=== PATIENT | female | born 1970 | race American Indian/Alaskan Native ===

== ENCOUNTER 2016-08-23 18:59 | Emergency (ER) | payer BC, OTHER ==
[2016-08-23 21:27] VITALS: BP 140/63
[2016-08-23] MEDS ORDERED: Ciprofloxacin 500 MG Tab PO ONE (23:47)
[2016-08-23] MEDS ORDERED: Phenazopyridine 95 MG Tab PO ONE (23:47)
--- NOTE | 2016-08-23 23:54 | EDM.PDOC ---
ED HPI RENAL/ - General Chief Complaint: Genitourinary Problem Stated Complaint: BLADER INFECTION [id number] Time Seen by Provider: 08/23/16 23:40 Source of Information: Reports: Patient History Limitations: Reports: No limitations - History of Present Illness INITIAL COMMENTS - FREE TEXT/NARRATIVE: This 46 yo female patient reports to the ED with a 2 day history of urinary tract infection symptoms (painful urination, urinary cramping). The patient reports her symptoms started yesterday, but she did not get into the clinic today. Symptom Onset Date: 08/22/16 Timing/Duration: Reports: Day(s): (2), Constant, Getting worse Location: Reports: urethral, suprapubic Quality: Reports: ache, cramping Severity: moderate Worsens with: Reports: defecating Associated Symptoms: Reports: burning, dysuria - Related Data Allergies/ADRs: Allergies Allergy/AdvReac Type Severity Reaction Status Date / Time No Known Allergies Allergy Verified 03/25/13 11:50 Home Meds: Home Meds Ibuprofen 600 mg PO Q8H 03/25/13 [History] metFORMIN [metFORMIN XR] 500 mg PO WDIN 03/25/13 [History] Past Medical History - Past Health History Medical/Surgical History: Denies Medical/Surgical History Social & Family History - Tobacco Use Smoking Status *Q: Never Smoker Years of Tobacco use: 20 Second Hand Smoke Exposure: Yes - Caffeine Use Caffeine Use: Reports: Coffee, Energy drinks - Alcohol Use Days Per Week of Alcohol Use: 1 Number of Drinks Per Day: 2 Total Drinks Per Week: 2 - Recreational Drug Use Recreational Drug Use: No ED ROS GENERAL - Review of Systems Review Of Systems: ROS reveals no pertinent complaints other than HPI. ED EXAM, RENAL/ - Physical Exam Exam: See Below Exam Limited By: No limitations General Appearance: alert, WD/WN, mild distress Eye Exam: bilateral eye: EOMI, normal inspection, PERRL Ears: normal external exam, normal canal, hearing grossly normal, normal TMs Nose: normal inspection, normal mucosa, no blood Throat/Mouth: Normal inspection, Normal lips, Normal teeth, Normal gums, Normal oropharynx, Normal voice, No airway compromise Head: atraumatic, normocephalic Neck: normal inspection, supple, non-tender, full range of motion Respiratory/Chest: no respiratory distress, lungs clear, normal breath sounds, no accessory muscle use, chest non-tender Cardiovascular: normal peripheral pulses, regular rate, rhythm, no edema, no gallop, no JVD, no murmur, no rub GI/Abdominal: normal bowel sounds, soft, non tender, no organomegaly, no distention, no abnormal bruit, no mass, other (obese) (Female) Exam: Deferred Rectal (Female) Exam: Deferred Back Exam: normal inspection, full range of motion, NT Extremities: normal inspection, normal range of motion, non-tender, normal capillary refill, no pedal edema Neurological: alert, oriented, CN II-XII intact, normal cognition, normal gait, normal reflexes, no motor/sensory deficits Psychiatric: normal affect, normal mood Skin Exam: Warm, Dry, Intact, Normal color, No rash Lymphatic: no adenopathy Course - Vital Signs Last Recorded V/S: Last Vital Signs Temp 36.6 C 08/23/16 21:24 Pulse 91 08/23/16 21:24 Resp 20 08/23/16 21:24 BP 140/63 08/23/16 21:24 Pulse Ox 96 08/23/16 21:24 - Orders/Labs/Meds Labs: Laboratory Tests 08/23/16 Range/Units 21:30 Urine Color Yellow (YELLOW) Urine Appearance Slightly cloudy (CLEAR) Urine pH 5.5 (5.0-9.0) Ur Specific [place] 1.015 (1.005-1.030) Urine Protein Trace H (NEGATIVE) Urine Glucose (UA) 500 H (NEGATIVE) Urine Ketones Negative (NEGATIVE) Urine Occult Blood Trace-intact H (NEGATIVE) Urine Nitrite Negative (NEGATIVE) Urine Bilirubin Negative (NEGATIVE) Urine Urobilinogen 0.2 (0.2-1.0) mg/dL Ur Leukocyte Esterase Small H (NEGATIVE) Urine RBC 5-10 H /HPF Urine WBC 40-50 H (0-5/HPF) /HPF Ur Epithelial Cells Many H /HPF Urine Bacteria Many H (0-FEW/HPF) /HPF Urine Yeast Moderate H (0/HPF) /HPF Meds: Medications Discontinued Medications Generic Name Dose Route Start Last Admin Trade Name Freq PRN Reason Stop Dose Admin Ciprofloxacin 500 mg 08/23/16 23:47 Ciprofloxacin Hcl PO 08/23/16 23:48 ONETIME ONE Phenazopyridine HCl 190 mg 08/23/16 23:47 Urinary Pain Relief PO 08/23/16 23:48 ONETIME ONE Departure - Departure Time of Disposition: 23:52 Disposition: Home, Self-Care 01 Condition: fair Clinical Impression: UTI, Urinary tract infectious disease Instructions: Urinary Tract Infection, Adult, [id number] Forms: ED Department Discharge Care Plan Goals: The patient was advised of the examination and lab results during the visit. The patient was given an oral dose of Cipro (500 mg) and Pyridium (200 mg) while in the ED. The patient was discharged with a script for Cipro (500 mg) #6 to take 1 by mouth 2 times per day for 3 days and Pyridium (200 mg) #6 to take 1 by mouth 3 times per day for 2 days. If the patient has any additional symptoms or concerns, the patient should follow-up with her primary care facility or return to the emergency department.
== END 2016-08-24 00:09 | disposition home or self-care (01) ==
LOC: DL.ED 18:59
DX: N39.0 Urinary tract infection, site not specified (principal); Z79.84 Long term (current) use of oral hypoglycemic drugs
CPT/HCPCS: 81001; 99283; A9270

== ENCOUNTER 2017-06-06 05:31 | Day surgery (SDC) | payer OTHER ==
[~2017-06-06 05:31] MED LIST: Dextrose 5%-0.45% NaCl 1,000 ML IV SCH; Sodium Chloride 0.9% 10 ML Syringe FLUSH PRN
[2017-06-06] MEDS ORDERED: fentaNYL 100 MCG/2 ML SDV IV ONE ×3 (05:32→06:33)
[2017-06-06] MEDS ORDERED: Midazolam 1 MG/ML 2 ML SDV IV ONE ×3 (05:32→06:34)
[2017-06-06] MEDS ORDERED: Dextrose 5%-0.45% NaCl 1,000 ML IV SCH (06:00)
[2017-06-06] MEDS ORDERED: Sodium Chloride 0.9% 10 ML Syringe FLUSH PRN (06:00)
[2017-06-06] MEDS ORDERED: Midazolam 1 MG/ML 2 ML SDV ONE (06:12)
[2017-06-06] MEDS ORDERED: fentaNYL 100 MCG/2 ML SDV ONE (06:12)
[2017-06-06 09:20] VITALS: BP 125/69
--- NOTE | 2017-06-06 13:10 | OR ---
DATE: 06/06/2017 PROCEDURE: Esophagogastroduodenoscopy and multiple pinch biopsies. INSTRUMENT USED: GIF-H180 Olympus video panendoscope. PREMEDICATIONS: No oral topical anesthesia used. Fentanyl 100 mcg intravenous, Versed 2 mg intravenous. Nasal O2 cannula. The procedure was done under pulse oximetry, BP recording, and scheme technician. INDICATION: The patient with persistent abdominal pain and dyspepsia, unexplained and not responsive to medical measures, on high-dose PPI. Esophagogastroduodenoscopy is performed for detection of any active erosive lesions, Stevens esophagus and/or malignancy also under consideration, H. pylori status to be determined, endoscopic hemostasis therapy if needed. DESCRIPTION OF PROCEDURE: The scope was passed with ease. Adequate visualization of the esophagus was made from proximal to distal areas. No upper esophageal lesions identified. No distal esophageal stricture. No uphill or downhill esophageal varices. No Kaylen-Sotomayor tear. No evidence of erosive esophagitis by Braham criteria. No esophageal polyp or tumor mass identified. Z-line was seen at around 40 cm distal to the oral verge, configuration consistent with grade I by ZAP classification. No proximal gastric varices noted. Gastric fundus examination by retroflexion showed no polypoid lesions. No gastric ulcer, malignant mass, or vascular ectasia identified. There was some patchy erythema of the antrum was noted. Duodenal bulb showed no ulcer. Visualized second part of the duodenum was unremarkable. Multiple pinch biopsies were taken from the gastric antrum and proximal body and sent for PyloriTek test for H. pylori, and if negative in an hour, tissue is to be sent for histopathology. No bleeding was noted from any of the visualized areas at the completion of the examination. Photographs were taken of the duodenal bulb, gastric antrum, fundus, and distal esophagus. IMPRESSION: Normal study. The patient tolerated the procedure well. [facility] /[id number]
== END 2017-06-06 08:45 | disposition home or self-care (01) ==
LOC: DL.ENDO 05:31
PROVIDERS: ATTEND Internal Medicine Gastroenterology
DX: K29.50 Unspecified chronic gastritis without bleeding (principal); E66.9 Obesity, unspecified; E11.9 Type 2 diabetes mellitus without complications; E78.00 Pure hypercholesterolemia, unspecified
CPT/HCPCS: 43239; 87077; J2250; J3010; J7042

== ENCOUNTER 2018-09-05 12:16 | Emergency (ER) | payer BC, OTHER ==
[2018-09-05 12:49] VITALS: BP 148/95
--- NOTE | 2018-09-05 17:45 | EDM.PDOC ---
Scribed by Lianne Blanchard 09/05/18 1416 for Kanchan Weir NP ED HPI GENERAL MEDICAL PROBLEM - General Chief Complaint: Skin Complaint Stated Complaint: rash on upper thigh Time Seen by Provider: 09/05/18 13:56 Source of Information: Reports: Patient, RN, RN Notes Reviewed History Limitations: Reports: No Limitations - History of Present Illness INITIAL COMMENTS - FREE TEXT/NARRATIVE: Patient presents to the ER with complaint of rash on skin on right leg that has spread. Patient states severe pain to the areas. She states it began yesterday a.m. Denies fever or chills. She states she can feel an area on her right cheek that feels will develop soon. Onset Date: 09/04/18 Duration: Constant Location: Reports: Lower Extremity, Right Quality: Reports: Ache Severity: Mild Improves with: Reports: None Worsens with: Reports: None Associated Symptoms: Reports: No Other Symptoms Right Upper Leg Pain Score (Numeric/FACES): 8 - Related Data Allergies Allergy/AdvReac Type Severity Reaction Status Date / Time No Known Allergies Allergy Verified 09/05/18 12:55 Home Meds: Home Meds Ibuprofen 600 mg PO Q8H 03/25/13 [History] metFORMIN [metFORMIN XR] 1,000 mg PO BID 03/25/13 [History] Multivitamin with Minerals [Multivitamins with Minerals] 1 each PO WEEKLY [History] Omeprazole [priLOSEC OTC] 20 mg PO BID 05/26/17 [History] Rosuvastatin [Crestor] 10 mg PO BEDTIME 05/26/17 [History] glipiZIDE [Glucotrol] 10 mg PO DAILY 05/26/17 [History] Past Medical History - Past Health History Medical/Surgical History: Denies Medical/Surgical History HEENT History: Reports: Impaired Vision Cardiovascular History: Reports: High Cholesterol Respiratory History: Reports: None Gastrointestinal History: Reports: GERD, PUD, Other (See Below) Other Gastrointestinal History: FATTY LIVER Genitourinary History: Reports: None [employer] History: Reports: None Musculoskeletal History: Reports: Fracture Other Musculoskeletal History: RIGHT ANKLE Neurological History: Reports: None Psychiatric History: Reports: Anxiety Endocrine/Metabolic History: Reports: Diabetes, Type II, Obesity/BMI 30+ Hematologic History: Reports: Anemia Immunologic History: Reports: None Oncologic (Cancer) History: Reports: None Dermatologic History: Reports: None - Infectious Disease History Infectious Disease History: Reports: Chicken Pox - Past Surgical History Head Surgeries/Procedures: Reports: None Musculoskeletal Surgical History: Reports: ORIF, Other (See Below) Other Musculoskeletal Surgeries/Procedures:: RIGHT ANKLE ORIF Social & Family History - Family History Family Medical History: Noncontributory - Tobacco Use Smoking Status *Q: Never Smoker Second Hand Smoke Exposure: No - Caffeine Use Caffeine Use: Reports: Coffee - Recreational Drug Use Recreational Drug Use: No ED ROS GENERAL - Review of Systems Review Of Systems: ROS reveals no pertinent complaints other than HPI. ED EXAM, SKIN/RASH Exam: See Below Exam Limited By: No Limitations General Appearance: Alert, WD/WN, No Apparent Distress Eye Exam: Bilateral Eye: EOMI, Normal Inspection, PERRL Ears: Normal External Exam, Normal Canal, Hearing Grossly Normal, Normal TMs Nose: Normal Inspection, Normal Mucosa, No Blood Throat/Mouth: Normal Inspection, Normal Lips, Normal Teeth, Normal Gums, Normal Oropharynx, Normal Voice, No Airway Compromise Head: Atraumatic, Normocephalic Neck: Normal Inspection, Supple, Non-Tender, Full Range of Motion Respiratory/Chest: No Respiratory Distress, Lungs Clear, Normal Breath Sounds, No Accessory Muscle Use, Chest Non-Tender Cardiovascular: Normal Peripheral Pulses, Regular Rate, Rhythm, No Edema, No Gallop, No JVD, No Murmur, No Rub GI/Abdominal: Normal Bowel Sounds, Soft, Non-Tender, No Organomegaly, No Distention, No Abnormal Bruit, No Mass (Female) Exam: Deferred Rectal (Female) Exam: Deferred Back Exam: Normal Inspection, Full Range of Motion, NT Extremities: Normal Inspection, Normal Range of Motion, Non-Tender, No Pedal Edema, Normal Capillary Refill Neurological: Alert, Oriented, CN II-XII Intact, Normal Cognition, Normal Gait, Normal Reflexes, No Motor/Sensory Deficits Psychiatric: Tearful Skin: Other (several areas on the right thigh and calf of erythematous areas with vesicles in the center--various stages noted. ) Lymphatic: No Adenopathy Course - Vital Signs Last Recorded V/S: Last Vital Signs Temp 98.4 F 09/05/18 12:48 Pulse 72 09/05/18 12:48 Resp 16 09/05/18 12:48 BP 148/95 H 09/05/18 12:48 Pulse Ox 96 09/05/18 12:48 Departure - Departure Time of Disposition: 14:15 Disposition: Home, Self-Care 01 Condition: Fair (shingles) Clinical Impression: Shingles Qualifiers: Herpes zoster complications: without complications Qualified Code(s): B02.9 - Zoster without complications - Discharge Information *PRESCRIPTION DRUG MONITORING PROGRAM REVIEWED*: No *COPY OF PRESCRIPTION DRUG MONITORING REPORT IN PATIENT ROGELIO: No Instructions: Shingles, [id number] Referrals: Luis Antonio Rahman [employer] [Primary Care Provider] - Forms: ED Department Discharge Additional Instructions: RX: Famciclovir, Lidocaine ointment, Oxycodone Drink plenty of water Follow up with your primary care facility next week if no improvement May use Tylenol as directed for pain I have read and agree with the documentation that has been completed regarding this visit. By signing this record, I attest that the documentation was completed in my physical presence and is an accurate record of the encounter.
== END 2018-09-05 14:21 | disposition home or self-care (01) ==
LOC: DL.ED 12:16
DX: B02.9 Zoster without complications (principal); E78.00 Pure hypercholesterolemia, unspecified; E11.9 Type 2 diabetes mellitus without complications; Z79.84 Long term (current) use of oral hypoglycemic drugs; Z79.899 Other long term (current) drug therapy; Z79.82 Long term (current) use of aspirin
CPT/HCPCS: 99283

== ENCOUNTER 2020-03-03 14:36 | Inpatient (IN) | payer BC, OTHER ==
--- NOTE | 2020-03-03 17:02 | CR ---
PROCEDURE INFORMATION: Exam: XR Chest, 1 View Exam date and time: 03/03/2020 4:49 PM Age: 49 years old Clinical indication: Other: Covid; Additional info: Chest pain TECHNIQUE: Imaging protocol: XR of the chest Views: 1 view. COMPARISON: No relevant prior studies available. FINDINGS: Lungs: Diffuse patchy airspace opacities noted throughout the lungs bilaterally. Pleural space: Unremarkable. No pleural effusion. No pneumothorax. Heart/Mediastinum: The heart demonstrates mild diffuse enlargement. Bones/joints: Unremarkable. IMPRESSION: 1. Diffuse patchy airspace opacities noted throughout the lungs bilaterally. Findings consistent with edema, viral or atypical pneumonia. Other etiologies are not excluded. 2. The heart demonstrates mild diffuse enlargement.
--- NOTE | 2020-03-03 17:31 | EDM.PDOC ---
ED HPI GENERAL MEDICAL PROBLEM - General Chief Complaint: General Stated Complaint: COVID+ Time Seen by Provider: 03/03/20 15:30 Source of Information: Reports: Patient, RN, RN Notes Reviewed History Limitations: Reports: No Limitations - History of Present Illness INITIAL COMMENTS - FREE TEXT/NARRATIVE: Pt is a 49 year old female who presents to ER with c/o generalized weakness, body aches, cough, headache. Pt admits to fevers as high as 102. Patient admits to pain with cough, SOB, N/V/D. Patient states she does not smoke. States she has been using Tylenol for pain relief, last took at [phone] today. Patient states she began having symptoms on 02/27/2020, was tested for COVID on 02/28, and was notified of positive results on evening 03/02. Onset: Gradual Generalized Pain Score (Numeric/FACES): 10 Headache Pain Score (Numeric/FACES): 7 - Related Data Allergies Allergy/AdvReac Type Severity Reaction Status Date / Time No Known Allergies Allergy Verified 03/03/20 19:23 Home Meds: Home Meds metFORMIN [Glucophage XR] 1,000 mg PO BID 03/25/13 [History] Rosuvastatin [Crestor] 10 mg PO BEDTIME 05/26/17 [History] Insulin Glarg,Human.Rec.Analog [Lantus] 30 units SQ DAILY 03/03/20 [History] lisinopriL [Lisinopril] 10 units PO DAILY 03/03/20 [History] Aspirin [Ecotrin EC] 325 mg PO DAILY #30 tab.ec 03/06/20 [Rx] dexAMETHasone [Dexamethasone] 6 mg PO Q6H #5 tab 03/06/20 [Rx] Past Medical History - Past Health History Medical/Surgical History: Denies Medical/Surgical History HEENT History: Reports: Impaired Vision Cardiovascular History: Reports: High Cholesterol Respiratory History: Reports: None Gastrointestinal History: Reports: GERD, PUD, Other (See Below) Other Gastrointestinal History: FATTY LIVER Genitourinary History: Reports: None MIME ARTIST History: Reports: None Musculoskeletal History: Reports: Fracture Other Musculoskeletal History: RIGHT ANKLE Neurological History: Reports: None Psychiatric History: Reports: Anxiety Endocrine/Metabolic History: Reports: Diabetes, Type II, Obesity/BMI 30+ Hematologic History: Reports: Anemia Immunologic History: Reports: None Oncologic (Cancer) History: Reports: None Dermatologic History: Reports: None - Infectious Disease History Infectious Disease History: Reports: Chicken Pox - Past Surgical History Head Surgeries/Procedures: Reports: None Musculoskeletal Surgical History: Reports: ORIF, Other (See Below) Other Musculoskeletal Surgeries/Procedures:: RIGHT ANKLE ORIF Social & Family History - Family History Family Medical History: No Pertinent Family History - Caffeine Use Caffeine Use: Reports: Coffee ED ROS GENERAL - Review of Systems Review Of Systems: Comprehensive ROS is negative, except as noted in HPI. ED EXAM, GENERAL - Physical Exam Exam: See Below Exam Limited By: No Limitations General Appearance: Alert, WD/WN, Moderate Distress Eye Exam: Bilateral Eye: EOMI, Normal Inspection Ears: Normal External Exam, Hearing Grossly Normal Nose: Normal Inspection Throat/Mouth: Normal Inspection, Normal Voice, No Airway Compromise Head: Atraumatic, Normocephalic Neck: Normal Inspection, Supple, Non-Tender, Full Range of Motion Respiratory/Chest: No Respiratory Distress, No Accessory Muscle Use, Chest Non- Tender, Decreased Breath Sounds Cardiovascular: Normal Peripheral Pulses, Regular Rate, Rhythm, No Edema, No Gallop, No JVD, No Murmur, No Rub Peripheral Pulses: 2+: Radial (L), Radial (R) GI/Abdominal: Normal Bowel Sounds, Soft, Non-Tender, No Organomegaly, No Distention, No Abnormal Bruit, No Mass, Pelvis Stable (Female) Exam: Deferred Rectal (Female) Exam: Deferred Back Exam: Normal Inspection, Full Range of Motion, NT Extremities: Normal Inspection, Normal Range of Motion, Non-Tender, Normal Capillary Refill, No Pedal Edema Neurological: Alert, Oriented, CN II-XII Intact, Normal Cognition, Normal Gait, Normal Reflexes, No Motor/Sensory Deficits Psychiatric: Normal Affect, Normal Mood Skin Exam: Warm, Dry, Intact, Normal Color, No Rash Lymphatic: No Adenopathy Course - Vital Signs Last Recorded V/S: Last Vital Signs Temp 97.1 F 03/06/20 11:00 Pulse 66 03/06/20 11:00 Resp 18 03/06/20 11:00 BP 139/80 03/06/20 11:00 Pulse Ox 90 L 03/06/20 12:23 - Orders/Labs/Meds Labs: Laboratory Tests 03/03/20 03/03/20 03/03/20 Range/Units 17:09 17:09 17:09 WBC 6.5 (5.0-10.0) 10^3/uL RBC 5.44 H (4.2-5.4) 10^6/uL Hgb 15.2 D (12.0-16.0) g/dL Hct 45.4 (37.0-47.0) % MCV 83.5 D (80-100) fL MCH 27.9 (27.0-34.0) pg MCHC 33.5 (33.0-35.0) g/dL Plt Count 200 D (150-450) 10^3/uL Neut % (Auto) 70.8 (42.2-75.2) % Lymph % (Auto) 20.4 L (20.5-50.1) % [place] % (Auto) 8.3 H (2-8) % Eos % (Auto) 0.5 L (1.0-3.0) % Baso % (Auto) 0.0 (0.0-1.0) % D-Dimer, Quantitative 299 (0-400) ng/mL Sodium 131 L (136-145) mmol/L Potassium 4.4 (3.5-5.1) mmol/L Chloride 96 L (98-107) mmol/L Carbon Dioxide 25 (21-32) mmol/L Anion Gap 14.4 H (7-13) mEq/L BUN 6 L (7-18) mg/dL Creatinine 0.50 L (0.55-1.02) mg/dL Est Cr Clr Drug Dosing 119.78 mL/min Estimated GFR (MDRD) > 60 BUN/Creatinine Ratio 12.0 (No establ ref range) Glucose 104 H (74-99) mg/dL Calcium 8.5 (8.5-10.1) mg/dL Total Bilirubin 0.6 (0.2-1.0) mg/dL Direct Bilirubin (0.0-0.2) mg/dL AST 61 H (15-37) U/L ALT 38 (14-59) U/L Alkaline Phosphatase 100 (46-116) U/L Lactate Dehydrogenase 531 H (81-234) U/L C-Reactive Protein 14.0 H (0.0-0.9) mg/dL Total Protein 8.6 H (6.4-8.2) g/dL Albumin 2.9 L (3.4-5.0) g/dL Globulin 5.7 Albumin/Globulin Ratio 0.51 Urine Color (YELLOW) Urine Appearance (CLEAR) Urine pH (5.0-9.0) Ur Specific [place] (1.005-1.030) Urine Protein (NEGATIVE) Urine Glucose (UA) (NEGATIVE) Urine Ketones (NEGATIVE) Urine Occult Blood (NEGATIVE) Urine Nitrite (NEGATIVE) Urine Bilirubin (NEGATIVE) Urine Urobilinogen (0.2-1.0) mg/dL Ur Leukocyte Esterase (NEGATIVE) Urine RBC /HPF Urine WBC (0-5/HPF) /HPF Ur Epithelial Cells (NOT SEEN) /HPF Urine Bacteria (0-FEW/HPF) /HPF Urine Mucus (NOT SEEN) /LPF Blood Type 03/03/20 03/03/20 03/03/20 Range/Units 17:09 17:09 18:04 WBC (5.0-10.0) 10^3/uL RBC (4.2-5.4) 10^6/uL Hgb (12.0-16.0) g/dL Hct (37.0-47.0) % MCV (80-100) fL MCH (27.0-34.0) pg MCHC (33.0-35.0) g/dL Plt Count (150-450) 10^3/uL Neut % (Auto) (42.2-75.2) % Lymph % (Auto) (20.5-50.1) % [place] % (Auto) (2-8) % Eos % (Auto) (1.0-3.0) % Baso % (Auto) (0.0-1.0) % D-Dimer, Quantitative (0-400) ng/mL Sodium (136-145) mmol/L Potassium (3.5-5.1) mmol/L Chloride (98-107) mmol/L Carbon Dioxide (21-32) mmol/L Anion Gap (7-13) mEq/L BUN (7-18) mg/dL Creatinine (0.55-1.02) mg/dL Est Cr Clr Drug Dosing mL/min Estimated GFR (MDRD) BUN/Creatinine Ratio (No establ ref range) Glucose (74-99) mg/dL Calcium (8.5-10.1) mg/dL Total Bilirubin (0.2-1.0) mg/dL Direct Bilirubin 0.1 (0.0-0.2) mg/dL AST (15-37) U/L ALT (14-59) U/L Alkaline Phosphatase (46-116) U/L Lactate Dehydrogenase (81-234) U/L C-Reactive Protein (0.0-0.9) mg/dL Total Protein (6.4-8.2) g/dL Albumin (3.4-5.0) g/dL Globulin Albumin/Globulin Ratio Urine Color Dark yellow (YELLOW) Urine Appearance Slightly cloudy (CLEAR) Urine pH 6.0 (5.0-9.0) Ur Specific [place] >= 1.030 (1.005-1.030) Urine Protein 100 H (NEGATIVE) Urine Glucose (UA) Negative (NEGATIVE) Urine Ketones 80 H (NEGATIVE) Urine Occult Blood Negative (NEGATIVE) Urine Nitrite Negative (NEGATIVE) Urine Bilirubin Small H (NEGATIVE) Urine Urobilinogen 1.0 (0.2-1.0) mg/dL Ur Leukocyte Esterase Negative (NEGATIVE) Urine RBC 0-5 /HPF Urine WBC 5-10 H (0-5/HPF) /HPF Ur Epithelial Cells Moderate H (NOT SEEN) /HPF Urine Bacteria Moderate H (0-FEW/HPF) /HPF Urine Mucus Moderate H (NOT SEEN) /LPF Blood Type O POSITIVE Meds: Medications Discontinued Medications Generic Name Dose Route Start Last Admin Trade Name Freq PRN Reason Stop Dose Admin Acetaminophen 650 mg 03/03/20 18:01 03/03/20 18:11 Tylenol PO 03/03/20 18:02 650 mg NOW ONE Administration Acetaminophen 650 mg 03/03/20 20:45 03/03/20 22:32 Tylenol PO 650 mg Q4H PRN Administration Fever Greater Than 101 Acetaminophen 650 mg 03/03/20 20:54 03/05/20 23:02 Tylenol PO 650 mg Q4H PRN Administration fever/pain Dexamethasone 6 mg 03/03/20 21:00 03/05/20 20:14 Decadron IVPUSH 03/12/20 21:01 6 mg DAILY@2100 GIORGIO Administration Dexamethasone 6 mg 03/06/20 13:00 03/06/20 13:51 Decadron IVPUSH 03/12/20 13:01 6 mg DAILY@1300 GIORGIO Administration Dextrose/Water 50 ml 03/03/20 21:00 Dextrose 50% In Water IV ASDIRECTED PRN Hypoglycemia Docusate Sodium 100 mg 03/03/20 20:57 03/06/20 09:51 Colace PO 100 mg DAILY PRN Administration Constipation Enoxaparin Sodium 40 mg 03/03/20 21:10 03/04/20 08:51 Lovenox SUBCUT 40 mg DAILY GIORGIO Administration Enoxaparin Sodium 40 mg 03/04/20 21:00 03/06/20 08:23 Lovenox SUBCUT 40 mg BID GIORGIO Administration Glucagon 1 mg 03/03/20 21:00 Glucagen IM ASDIRECTED PRN Hypoglycemia Guaifenesin/Codeine Phosphate 5 ml 03/03/20 18:01 03/03/20 18:11 Robitussin Ac PO 03/03/20 18:02 5 ml ONETIME ONE Administration Guaifenesin/Codeine Phosphate 5 ml 03/04/20 22:08 03/05/20 21:52 Robitussin Ac PO 5 ml Q4H PRN Administration cough Sodium Chloride 1,000 mls @ 100 mls/hr 03/03/20 18:01 03/04/20 04:27 Normal Saline IV 03/04/20 04:00 Infused CONTINUOUS ONE Infusion Remdesivir 100 mg/ Sodium 230 mls @ 230 mls/hr 03/04/20 21:00 03/05/20 23:00 Chloride IV 03/07/20 21:59 Infused DAILY@2100 GIORGIO Infusion Remdesivir 200 mg/ Sodium 210 mls @ 210 mls/hr 03/03/20 21:00 03/03/20 23:29 Chloride IV 03/03/20 21:59 Infused ONETIME ONE Infusion Sterile Water Confirm 03/04/20 19:36 03/04/20 22:03 Sterile Water For Injection Administered 03/04/20 19:37 Not Given Dose 40 mls @ as directed .ROUTE .STK-MED ONE Remdesivir 100 mg/ Sodium 230 mls @ 230 mls/hr 03/06/20 14:00 03/06/20 13:50 Chloride IV 03/07/20 14:59 230 mls/hr DAILY@1400 GIORGIO Administration Insulin Human Lispro 0 unit 03/03/20 21:00 03/06/20 12:19 Humalog SUBCUT 4 units WITHMEALSANDBED GIORGIO Administration Protocol - Radiology Interpretation Free Text/Narrative:: Chest xray: PROCEDURE INFORMATION: Exam: XR Chest, 1 View Exam date and time: 03/03/2020 4:49 PM Age: 49 years old Clinical indication: Other: Covid; Additional info: Chest pain TECHNIQUE: Imaging protocol: XR of the chest Views: 1 view. COMPARISON: No relevant prior studies available. FINDINGS: Lungs: Diffuse patchy airspace opacities noted throughout the lungs bilaterally. Pleural space: Unremarkable. No pleural effusion. No pneumothorax. Heart/Mediastinum: The heart demonstrates mild diffuse enlargement. Bones/joints: Unremarkable. IMPRESSION: 1. Diffuse patchy airspace opacities noted throughout the lungs bilaterally. Findings consistent with edema, viral or atypical pneumonia. Other etiologies are not excluded. 2. The heart demonstrates mild diffuse enlargement. Thank you for allowing us to participate in the care of your patient. Dictated and Authenticated by: Manjeet Gaspar DO 03/03/2020 5:02 PM Central Time ([place] & [place]) See rad report - Re-Assessments/Exams Free Text/Narrative Re-Assessment/Exam: 03/03/20 18:07 Discussed patient case with Dr. Phillips who agreed to admit the patient for inpatient admission. Departure - Departure Time of Disposition: 18:08 Disposition: Admitted As Inpatient 64 Condition: Fair Clinical Impression: Pneumonia due to COVID-19 virus - Discharge Information *PRESCRIPTION DRUG MONITORING PROGRAM REVIEWED*: No *COPY OF PRESCRIPTION DRUG MONITORING REPORT IN PATIENT ROGELIO: No
[2020-03-03 17:35] LABS: ANION GAP 14.4 mEq/L (7-13); CHLORIDE,CL 96 mmol/L (98-107); SODIUM,NA 131 mmol/L (136-145)
[2020-03-03] MEDS ORDERED: Codeine/guaiFENesin 10-100 MG/5 ML Syrup 5 ML Cup PO ONE (18:01)
[2020-03-03] MEDS ORDERED: Sodium Chloride 0.9% 1,000 ML IV ONE (18:01)
[2020-03-03] MEDS ORDERED: Acetaminophen 325 MG Tab PO ONE (18:01)
--- NOTE | 2020-03-03 19:57 | PCM.HP ---
H&P History of Present Illness - General Date of Service: 03/03/20 Admit Problem/Dx: Admission Diagnosis/Problem Admission Diagnosis/Problem Pneumonia secondary to COVID-19 Source of Information: Patient, Old Records History Limitations: Reports: No Limitations - History of Present Illness Initial Comments - Free Text/Narative: This is a 49 Y/O Obese Female with past medical history of Diabetes II, Dyslipidemia, Hypertension, Fally Liver, GERD, Obesity presented to ER in c reased shortness of breath, CXR showed diffuse patch opacities B/L lung and COVID-19 was positive, she is admitted for COVID-19 pneumonia Onset of Symptoms: Reports: Gradual Duration of Symptoms: Reports: Getting Worse Severity: Severe Worsens with: Reports: Breathing Associated Symptoms: Reports: cough w sputum, Fever/Chills, Shortness of Breath Generalized Pain Score (Numeric/FACES): 8 - Related Data Allergies/Adverse Reactions: Allergies Allergy/AdvReac Type Severity Reaction Status Date / Time No Known Allergies Allergy Verified 03/03/20 19:23 Home Medications: Home Meds metFORMIN [metFORMIN XR] 1,000 mg PO BID 03/25/13 [History] Rosuvastatin [Crestor] 10 mg PO BEDTIME 05/26/17 [History] Insulin Glarg,Human.Rec.Analog [Lantus] 30 units SQ DAILY 03/03/20 [History] lisinopriL [Lisinopril] 10 units PO DAILY 03/03/20 [History] Past Medical History - Past Health History Medical/Surgical History: Denies Medical/Surgical History HEENT History: Reports: Impaired Vision Cardiovascular History: Reports: High Cholesterol Respiratory History: Reports: None Gastrointestinal History: Reports: GERD, PUD, Other (See Below) Other Gastrointestinal History: FATTY LIVER Genitourinary History: Reports: None REEL TENDER History: Reports: None Musculoskeletal History: Reports: Fracture Other Musculoskeletal History: RIGHT ANKLE Neurological History: Reports: None Psychiatric History: Reports: Anxiety Endocrine/Metabolic History: Reports: Diabetes, Type II, Obesity/BMI 30+ Hematologic History: Reports: Anemia Immunologic History: Reports: None Oncologic (Cancer) History: Reports: None Dermatologic History: Reports: None - Infectious Disease History Infectious Disease History: Reports: Chicken Pox - Past Surgical History Head Surgeries/Procedures: Reports: None Musculoskeletal Surgical History: Reports: ORIF, Other (See Below) Other Musculoskeletal Surgeries/Procedures:: RIGHT ANKLE ORIF Social & Family History - Family History Family Medical History: No Pertinent Family History - Tobacco Use Tobacco Use Status *Q: Former Tobacco User Used Tobacco, but Quit: Yes Month/Year Tobacco Last Used: 07/1977 Second Hand Smoke Exposure: No - Caffeine Use Caffeine Use: Reports: Coffee - Recreational Drug Use Recreational Drug Use: No H&P Review of Systems - Review of Systems: Review Of Systems: See Below General: Reports: Fever, Chills, Weakness. Denies: Weight Loss, Weight Gain HEENT: Denies: Hearing Changes, Sinus Congestion, Sore Throat, Visual Changes Pulmonary: Reports: Shortness of Breath, Wheezing, Cough, Sputum Cardiovascular: Denies: Chest Pain, Orthopnea, Lightheadedness Gastrointestinal: Denies: Abdominal Pain, Diarrhea, Difficulty Swallowing, Vomiting Genitourinary: Denies: Dysuria, Burning, Flank Pain Musculoskeletal: Denies: Neck Pain, Leg Pain, Joint Swelling, Muscle Stiffness Skin: Denies: Cyanosis, Jaundice, Bruising, Rash Psychiatric: Denies: Confusion, Anxiety, Agitation Neurological: Denies: Confusion, Numbness, Tremors Hematologic/Lymphatic: Reports: No Symptoms Immunologic: Reports: No Symptoms Exam - Exam Exam: See Below - Vital Signs Vital Signs: Last Vital Signs Temp 37.4 C 03/03/20 18:49 Pulse 79 03/03/20 18:49 Resp 16 03/03/20 18:49 BP 107/59 L 03/03/20 18:49 Pulse Ox 97 03/03/20 18:49 Weight: 101.605 kg - Exam Quality Assessment: Supplemental Oxygen, DVT Prophylaxis. No: Urinary Catheter General: Alert, Oriented, Cooperative, Mild Distress HEENT: Conjunctiva Clear, EOMI, Pupils Equal Neck: Supple. No: Lymphadenopathy, Thyromegaly Lungs: Clear to Auscultation, Normal Respiratory Effort, Decreased Breath Sounds. No: Wheezing Cardiovascular: Regular Rate, Regular Rhythm GI/Abdominal Exam: Normal Bowel Sounds. No: Guarding, Rigid, Rebound (Female) Exam: Deferred Rectal (Female) Exam: Deferred Back Exam: Normal Inspection, Full Range of Motion Extremities: Normal Inspection, Normal Range of Motion, No Pedal Edema Skin: Warm, Dry, Intact Neurological: Cranial Nerves Intact, Reflexes Equal Bilateral Neuro Extensive - Mental Status: Alert, Oriented x3, Normal Mood/Affect, Normal Cognition, Memory Intact Neuro Extensive - Motor, Sensory, Reflexes: Normal Gait, Normal Reflexes Psychiatric: Alert, Normal Affect, Normal Mood - Patient Data Lab Results Last 24 hrs: Laboratory Results - last 24 hr 03/03/20 03/03/20 03/03/20 Range/Units 17:09 17:09 17:09 WBC 6.5 (5.0-10.0) 10^3/uL RBC 5.44 H (4.2-5.4) 10^6/uL Hgb 15.2 D (12.0-16.0) g/dL Hct 45.4 (37.0-47.0) % MCV 83.5 D (80-100) fL MCH 27.9 (27.0-34.0) pg MCHC 33.5 (33.0-35.0) g/dL Plt Count 200 D (150-450) 10^3/uL Neut % (Auto) 70.8 (42.2-75.2) % Lymph % (Auto) 20.4 L (20.5-50.1) % [place] % (Auto) 8.3 H (2-8) % Eos % (Auto) 0.5 L (1.0-3.0) % Baso % (Auto) 0.0 (0.0-1.0) % D-Dimer, Quantitative 299 (0-400) ng/mL Sodium 131 L (136-145) mmol/L Potassium 4.4 (3.5-5.1) mmol/L Chloride 96 L (98-107) mmol/L Carbon Dioxide 25 (21-32) mmol/L Anion Gap 14.4 H (7-13) mEq/L BUN 6 L (7-18) mg/dL Creatinine 0.50 L (0.55-1.02) mg/dL Est Cr Clr Drug Dosing 119.78 mL/min Estimated GFR (MDRD) > 60 BUN/Creatinine Ratio 12.0 (No establ ref range) Glucose 104 H (74-99) mg/dL Calcium 8.5 (8.5-10.1) mg/dL Total Bilirubin 0.6 (0.2-1.0) mg/dL AST 61 H (15-37) U/L ALT 38 (14-59) U/L Alkaline Phosphatase 100 (46-116) U/L Lactate Dehydrogenase 531 H (81-234) U/L C-Reactive Protein 14.0 H (0.0-0.9) mg/dL Total Protein 8.6 H (6.4-8.2) g/dL Albumin 2.9 L (3.4-5.0) g/dL Globulin 5.7 Albumin/Globulin Ratio 0.51 Urine Color (YELLOW) Urine Appearance (CLEAR) Urine pH (5.0-9.0) Ur Specific [place] (1.005-1.030) Urine Protein (NEGATIVE) Urine Glucose (UA) (NEGATIVE) Urine Ketones (NEGATIVE) Urine Occult Blood (NEGATIVE) Urine Nitrite (NEGATIVE) Urine Bilirubin (NEGATIVE) Urine Urobilinogen (0.2-1.0) mg/dL Ur Leukocyte Esterase (NEGATIVE) 03/03/20 Range/Units 18:04 WBC (5.0-10.0) 10^3/uL RBC (4.2-5.4) 10^6/uL Hgb (12.0-16.0) g/dL Hct (37.0-47.0) % MCV (80-100) fL MCH (27.0-34.0) pg MCHC (33.0-35.0) g/dL Plt Count (150-450) 10^3/uL Neut % (Auto) (42.2-75.2) % Lymph % (Auto) (20.5-50.1) % [place] % (Auto) (2-8) % Eos % (Auto) (1.0-3.0) % Baso % (Auto) (0.0-1.0) % D-Dimer, Quantitative (0-400) ng/mL Sodium (136-145) mmol/L Potassium (3.5-5.1) mmol/L Chloride (98-107) mmol/L Carbon Dioxide (21-32) mmol/L Anion Gap (7-13) mEq/L BUN (7-18) mg/dL Creatinine (0.55-1.02) mg/dL Est Cr Clr Drug Dosing mL/min Estimated GFR (MDRD) BUN/Creatinine Ratio (No establ ref range) Glucose (74-99) mg/dL Calcium (8.5-10.1) mg/dL Total Bilirubin (0.2-1.0) mg/dL AST (15-37) U/L ALT (14-59) U/L Alkaline Phosphatase (46-116) U/L Lactate Dehydrogenase (81-234) U/L C-Reactive Protein (0.0-0.9) mg/dL Total Protein (6.4-8.2) g/dL Albumin (3.4-5.0) g/dL Globulin Albumin/Globulin Ratio Urine Color Dark yellow (YELLOW) Urine Appearance Slightly cloudy (CLEAR) Urine pH 6.0 (5.0-9.0) Ur Specific [place] >= 1.030 (1.005-1.030) Urine Protein 100 H (NEGATIVE) Urine Glucose (UA) Negative (NEGATIVE) Urine Ketones 80 H (NEGATIVE) Urine Occult Blood Negative (NEGATIVE) Urine Nitrite Negative (NEGATIVE) Urine Bilirubin Small H (NEGATIVE) Urine Urobilinogen 1.0 (0.2-1.0) mg/dL Ur Leukocyte Esterase Negative (NEGATIVE) Result Diagrams: 03/03/20 17:09 03/03/20 17:09 Norberto Results Last 24 hrs: Microbiology 03/03/20 18:02 Influenza Type A Antigen Screen - Final Nasal, Unspecified NEGATIVE INFLUENZA A VIRUS AG REFERENCE RANGE: NEGATIVE Influenza Type B Antigen Screen - Final NEGATIVE INFLUENZA B VIRUS AG REFERENCE RANGE: NEGATIVE - Problem List (1) Hypertension SNOMED Code(s): 55518608 ICD Code: I10 - ESSENTIAL (PRIMARY) HYPERTENSION Status: Acute Current Visit: Yes Qualifiers: Hypertension type: essential hypertension Qualified Code(s): I10 - Essential (primary) hypertension (2) Pneumonia due to COVID-19 virus SNOMED Code(s): 316546127028026951 ICD Code: U07.1 - COVID-19; J12.89 - OTHER VIRAL PNEUMONIA Status: Acute Current Visit: No Problem List Initiated/Reviewed/Updated: Yes Orders Last 24hrs: Active Orders 24 hr Category Date Time Status Admission Diagnosis [ADT] Stat ADT 03/03/20 18:09 Ordered Admission Status [Patient Status] [ADT] Routine ADT 03/03/20 18:09 Active URINALYSIS W/MICROSCOPIC [UA W/MICROSCOPIC] [URIN] Stat Lab 03/03/20 18:04 Results Sodium Chloride 0.9% [Normal Saline] 1,000 ml Med 03/03/20 18:01 Active IV CONTINUOUS Isolation [COMM] Routine Oth 03/03/20 15:49 Active Medication Orders Sodium Chloride (Normal Saline) 1,000 mls @ 150 mls/hr IV CONTINUOUS ONE Stop: 03/04/20 00:40 Last Admin: 03/03/20 18:08 Dose: 150 mls/hr Documented by: SYDNEY Assessment/Plan Comment:: This is a 49 Y/O F admitted with COVID-19 pneumonia Impreesion and Plan: 1. Covid 19 pneumonia Exposure on 02/25/20, symptoms started 02/27/20, got tested on Friday02/29/20 and results positive today ( 03/03/20) - Has GI and pulmonary symptoms - associated with hypoxemia 89% on RA c LFT, Renal fx. Is good treat with , first dosr Remdesivir 03/03 Dexamethasone 03/03 Plasma 03/03 2 units Has no taste and no appetite -Will Start albuterol scheduled and as needed - evaluate for concurrent bacterial infections - Follow pro-calcitonin levels -In the meantime hold Abx - Ddimer is low DVT prophylaxis SQ Lovenox I spoke with patient and provided information about Remdesevir treatment as being under emergency use authorization (EUA) and not fully FDA approved or reviewed. I discussed potential side effects including liver abnormalities. Also discussed other potential treatment options that are currently not FDA approved to treat COVID-19. Patient gives permission for Remdesevir. I also discussed risks and benefits of Plasma Tx re: covid and agreed to accept the plasma 2. Diabetes II: pt has no appetite and will start Insulin protocol 3. Hyppertension: Continue Home Medication Code status: Full Code
[2020-03-03] MEDS ORDERED: Acetaminophen 325 MG Tab PO PRN (20:45)
[2020-03-03] MEDS ORDERED: Glucagon,Human Recombinant 1 MG Vial IM PRN (21:00)
[2020-03-03] MEDS ORDERED: 50% Dextrose in Water 50 ML Syringe IV PRN (21:00)
[2020-03-03] MEDS: Dexamethasone 4 MG/ML SDV IVPUSH SCH (22:31)
[2020-03-03] MEDS: Docusate Sodium 100 MG Cap PO PRN (22:33)
[2020-03-03] MEDS: Enoxaparin 40 MG/0.4 ML Syringe SUBCUT SCH (22:34)
[2020-03-03] MEDS: Insulin Lispro 100 Units/ML 3 ML Vial SUBCUT SCH (23:11)
[2020-03-04] MEDS: Insulin Lispro 100 Units/ML 3 ML Vial SUBCUT SCH ×4 (08:49→21:17)
[2020-03-04] MEDS: Enoxaparin 40 MG/0.4 ML Syringe SUBCUT SCH ×2 (08:51→21:27)
[2020-03-04] MEDS: Acetaminophen 325 MG Tab PO PRN ×3 (08:52→21:43)
[2020-03-04 10:17] LABS: CHLORIDE,CL 101 mmol/L (98-107); SODIUM,NA 135 mmol/L (136-145)
--- NOTE | 2020-03-04 14:57 | PCM.PN ---
- General Info Date of Service: 03/04/20 Admission Dx/Problem (Free Text): Admission Diagnosis/Problem Admission Diagnosis/Problem Pneumonia secondary to COVID-19 Functional Status: Reports: Pain Controlled, Tolerating Diet, Ambulating - Review of Systems General: Reports: Weakness, Appetite (improving , had no appetite on admission). Denies: Fever, Chills Pulmonary: Reports: Shortness of Breath, Cough. Denies: Sputum, Wheezing Cardiovascular: Reports: Dyspnea on Exertion. Denies: Chest Pain, Edema Gastrointestinal: Denies: Abdominal Pain, Difficulty Swallowing, Nausea, Vomiting Genitourinary: Denies: Dysuria, Burning, Urgency, Flank Pain Musculoskeletal: Denies: Neck Pain, Back Pain, Joint Swelling Skin: Denies: Cyanosis, Jaundice, Bruising, Rash Neurological: Reports: Weakness. Denies: Confusion, Tremors Psychiatric: Denies: Confusion, Anxiety - Patient Data Vitals - Most Recent: Last Vital Signs Temp 36.9 C 03/04/20 12:00 Pulse 71 03/04/20 12:00 Resp 20 03/04/20 12:00 BP 117/69 03/04/20 12:00 Pulse Ox 93 L 03/04/20 12:00 Weight - Most Recent: 101.605 kg Lab Results Last 24 Hours: Laboratory Results - last 24 hr 03/03/20 03/03/20 03/03/20 Range/Units 17:09 17:09 17:09 WBC 6.5 (5.0-10.0) 10^3/uL RBC 5.44 H (4.2-5.4) 10^6/uL Hgb 15.2 D (12.0-16.0) g/dL Hct 45.4 (37.0-47.0) % MCV 83.5 D (80-100) fL MCH 27.9 (27.0-34.0) pg MCHC 33.5 (33.0-35.0) g/dL Plt Count 200 D (150-450) 10^3/uL Neut % (Auto) 70.8 (42.2-75.2) % Lymph % (Auto) 20.4 L (20.5-50.1) % [place] % (Auto) 8.3 H (2-8) % Eos % (Auto) 0.5 L (1.0-3.0) % Baso % (Auto) 0.0 (0.0-1.0) % D-Dimer, Quantitative 299 (0-400) ng/mL Sodium 131 L (136-145) mmol/L Potassium 4.4 (3.5-5.1) mmol/L Chloride 96 L (98-107) mmol/L Carbon Dioxide 25 (21-32) mmol/L Anion Gap 14.4 H (7-13) mEq/L BUN 6 L (7-18) mg/dL Creatinine 0.50 L (0.55-1.02) mg/dL Est Cr Clr Drug Dosing 119.78 mL/min Estimated GFR (MDRD) > 60 BUN/Creatinine Ratio 12.0 (No establ ref range) Glucose 104 H (74-99) mg/dL POC Glucose (70-105) mg/dl Calcium 8.5 (8.5-10.1) mg/dL Total Bilirubin 0.6 (0.2-1.0) mg/dL Direct Bilirubin (0.0-0.2) mg/dL Indirect Bilirubin AST 61 H (15-37) U/L ALT 38 (14-59) U/L Alkaline Phosphatase 100 (46-116) U/L Lactate Dehydrogenase 531 H (81-234) U/L C-Reactive Protein 14.0 H (0.0-0.9) mg/dL Total Protein 8.6 H (6.4-8.2) g/dL Albumin 2.9 L (3.4-5.0) g/dL Globulin 5.7 Albumin/Globulin Ratio 0.51 Urine Color (YELLOW) Urine Appearance (CLEAR) Urine pH (5.0-9.0) Ur Specific [place] (1.005-1.030) Urine Protein (NEGATIVE) Urine Glucose (UA) (NEGATIVE) Urine Ketones (NEGATIVE) Urine Occult Blood (NEGATIVE) Urine Nitrite (NEGATIVE) Urine Bilirubin (NEGATIVE) Urine Urobilinogen (0.2-1.0) mg/dL Ur Leukocyte Esterase (NEGATIVE) Urine RBC /HPF Urine WBC (0-5/HPF) /HPF Ur Epithelial Cells (NOT SEEN) /HPF Urine Bacteria (0-FEW/HPF) /HPF Urine Mucus (NOT SEEN) /LPF Blood Type 03/03/20 03/03/20 03/03/20 Range/Units 17:09 17:09 18:04 WBC (5.0-10.0) 10^3/uL RBC (4.2-5.4) 10^6/uL Hgb (12.0-16.0) g/dL Hct (37.0-47.0) % MCV (80-100) fL MCH (27.0-34.0) pg MCHC (33.0-35.0) g/dL Plt Count (150-450) 10^3/uL Neut % (Auto) (42.2-75.2) % Lymph % (Auto) (20.5-50.1) % [place] % (Auto) (2-8) % Eos % (Auto) (1.0-3.0) % Baso % (Auto) (0.0-1.0) % D-Dimer, Quantitative (0-400) ng/mL Sodium (136-145) mmol/L Potassium (3.5-5.1) mmol/L Chloride (98-107) mmol/L Carbon Dioxide (21-32) mmol/L Anion Gap (7-13) mEq/L BUN (7-18) mg/dL Creatinine (0.55-1.02) mg/dL Est Cr Clr Drug Dosing mL/min Estimated GFR (MDRD) BUN/Creatinine Ratio (No establ ref range) Glucose (74-99) mg/dL POC Glucose (70-105) mg/dl Calcium (8.5-10.1) mg/dL Total Bilirubin (0.2-1.0) mg/dL Direct Bilirubin 0.1 (0.0-0.2) mg/dL Indirect Bilirubin AST (15-37) U/L ALT (14-59) U/L Alkaline Phosphatase (46-116) U/L Lactate Dehydrogenase (81-234) U/L C-Reactive Protein (0.0-0.9) mg/dL Total Protein (6.4-8.2) g/dL Albumin (3.4-5.0) g/dL Globulin Albumin/Globulin Ratio Urine Color Dark yellow (YELLOW) Urine Appearance Slightly cloudy (CLEAR) Urine pH 6.0 (5.0-9.0) Ur Specific [place] >= 1.030 (1.005-1.030) Urine Protein 100 H (NEGATIVE) Urine Glucose (UA) Negative (NEGATIVE) Urine Ketones 80 H (NEGATIVE) Urine Occult Blood Negative (NEGATIVE) Urine Nitrite Negative (NEGATIVE) Urine Bilirubin Small H (NEGATIVE) Urine Urobilinogen 1.0 (0.2-1.0) mg/dL Ur Leukocyte Esterase Negative (NEGATIVE) Urine RBC 0-5 /HPF Urine WBC 5-10 H (0-5/HPF) /HPF Ur Epithelial Cells Moderate H (NOT SEEN) /HPF Urine Bacteria Moderate H (0-FEW/HPF) /HPF Urine Mucus Moderate H (NOT SEEN) /LPF Blood Type O POSITIVE 03/03/20 03/04/20 03/04/20 Range/Units 22:37 06:30 06:30 WBC 3.4 L (5.0-10.0) 10^3/uL RBC 5.24 (4.2-5.4) 10^6/uL Hgb 14.8 (12.0-16.0) g/dL Hct 43.8 (37.0-47.0) % MCV 83.6 (80-100) fL MCH 28.2 (27.0-34.0) pg MCHC 33.8 (33.0-35.0) g/dL Plt Count 243 (150-450) 10^3/uL Neut % (Auto) 65.0 (42.2-75.2) % Lymph % (Auto) 30.6 (20.5-50.1) % [place] % (Auto) 4.4 (2-8) % Eos % (Auto) 0.0 L (1.0-3.0) % Baso % (Auto) 0.0 (0.0-1.0) % D-Dimer, Quantitative 349 (0-400) ng/mL Sodium (136-145) mmol/L Potassium (3.5-5.1) mmol/L Chloride (98-107) mmol/L Carbon Dioxide (21-32) mmol/L Anion Gap (7-13) mEq/L BUN (7-18) mg/dL Creatinine (0.55-1.02) mg/dL Est Cr Clr Drug Dosing mL/min Estimated GFR (MDRD) BUN/Creatinine Ratio (No establ ref range) Glucose (74-99) mg/dL POC Glucose 86 (70-105) mg/dl Calcium (8.5-10.1) mg/dL Total Bilirubin (0.2-1.0) mg/dL Direct Bilirubin (0.0-0.2) mg/dL Indirect Bilirubin AST (15-37) U/L ALT (14-59) U/L Alkaline Phosphatase (46-116) U/L Lactate Dehydrogenase (81-234) U/L C-Reactive Protein (0.0-0.9) mg/dL Total Protein (6.4-8.2) g/dL Albumin (3.4-5.0) g/dL Globulin Albumin/Globulin Ratio Urine Color (YELLOW) Urine Appearance (CLEAR) Urine pH (5.0-9.0) Ur Specific [place] (1.005-1.030) Urine Protein (NEGATIVE) Urine Glucose (UA) (NEGATIVE) Urine Ketones (NEGATIVE) Urine Occult Blood (NEGATIVE) Urine Nitrite (NEGATIVE) Urine Bilirubin (NEGATIVE) Urine Urobilinogen (0.2-1.0) mg/dL Ur Leukocyte Esterase (NEGATIVE) Urine RBC /HPF Urine WBC (0-5/HPF) /HPF Ur Epithelial Cells (NOT SEEN) /HPF Urine Bacteria (0-FEW/HPF) /HPF Urine Mucus (NOT SEEN) /LPF Blood Type 03/04/20 03/04/20 03/04/20 Range/Units 06:30 06:30 07:34 WBC (5.0-10.0) 10^3/uL RBC (4.2-5.4) 10^6/uL Hgb (12.0-16.0) g/dL Hct (37.0-47.0) % MCV (80-100) fL MCH (27.0-34.0) pg MCHC (33.0-35.0) g/dL Plt Count (150-450) 10^3/uL Neut % (Auto) (42.2-75.2) % Lymph % (Auto) (20.5-50.1) % [place] % (Auto) (2-8) % Eos % (Auto) (1.0-3.0) % Baso % (Auto) (0.0-1.0) % D-Dimer, Quantitative (0-400) ng/mL Sodium 135 L (136-145) mmol/L Potassium 4.0 (3.5-5.1) mmol/L Chloride 101 (98-107) mmol/L Carbon Dioxide 22 (21-32) mmol/L Anion Gap 16.0 H (7-13) mEq/L BUN 5 L (7-18) mg/dL Creatinine 0.53 L (0.55-1.02) mg/dL Est Cr Clr Drug Dosing 113.00 mL/min Estimated GFR (MDRD) > 60 BUN/Creatinine Ratio (No establ ref range) Glucose 206 H (74-99) mg/dL POC Glucose 192 H (70-105) mg/dl Calcium 8.4 L (8.5-10.1) mg/dL Total Bilirubin 0.3 (0.2-1.0) mg/dL Direct Bilirubin 0.1 (0.0-0.2) mg/dL Indirect Bilirubin 0.2 AST 35 (15-37) U/L ALT 33 (14-59) U/L Alkaline Phosphatase 100 (46-116) U/L Lactate Dehydrogenase (81-234) U/L C-Reactive Protein (0.0-0.9) mg/dL Total Protein 7.9 (6.4-8.2) g/dL Albumin 2.7 L (3.4-5.0) g/dL Globulin 5.2 Albumin/Globulin Ratio 0.52 Urine Color (YELLOW) Urine Appearance (CLEAR) Urine pH (5.0-9.0) Ur Specific [place] (1.005-1.030) Urine Protein (NEGATIVE) Urine Glucose (UA) (NEGATIVE) Urine Ketones (NEGATIVE) Urine Occult Blood (NEGATIVE) Urine Nitrite (NEGATIVE) Urine Bilirubin (NEGATIVE) Urine Urobilinogen (0.2-1.0) mg/dL Ur Leukocyte Esterase (NEGATIVE) Urine RBC /HPF Urine WBC (0-5/HPF) /HPF Ur Epithelial Cells (NOT SEEN) /HPF Urine Bacteria (0-FEW/HPF) /HPF Urine Mucus (NOT SEEN) /LPF Blood Type 03/04/20 Range/Units 11:49 WBC (5.0-10.0) 10^3/uL RBC (4.2-5.4) 10^6/uL Hgb (12.0-16.0) g/dL Hct (37.0-47.0) % MCV (80-100) fL MCH (27.0-34.0) pg MCHC (33.0-35.0) g/dL Plt Count (150-450) 10^3/uL Neut % (Auto) (42.2-75.2) % Lymph % (Auto) (20.5-50.1) % [place] % (Auto) (2-8) % Eos % (Auto) (1.0-3.0) % Baso % (Auto) (0.0-1.0) % D-Dimer, Quantitative (0-400) ng/mL Sodium (136-145) mmol/L Potassium (3.5-5.1) mmol/L Chloride (98-107) mmol/L Carbon Dioxide (21-32) mmol/L Anion Gap (7-13) mEq/L BUN (7-18) mg/dL Creatinine (0.55-1.02) mg/dL Est Cr Clr Drug Dosing mL/min Estimated GFR (MDRD) BUN/Creatinine Ratio (No establ ref range) Glucose (74-99) mg/dL POC Glucose 176 H (70-105) mg/dl Calcium (8.5-10.1) mg/dL Total Bilirubin (0.2-1.0) mg/dL Direct Bilirubin (0.0-0.2) mg/dL Indirect Bilirubin AST (15-37) U/L ALT (14-59) U/L Alkaline Phosphatase (46-116) U/L Lactate Dehydrogenase (81-234) U/L C-Reactive Protein (0.0-0.9) mg/dL Total Protein (6.4-8.2) g/dL Albumin (3.4-5.0) g/dL Globulin Albumin/Globulin Ratio Urine Color (YELLOW) Urine Appearance (CLEAR) Urine pH (5.0-9.0) Ur Specific [place] (1.005-1.030) Urine Protein (NEGATIVE) Urine Glucose (UA) (NEGATIVE) Urine Ketones (NEGATIVE) Urine Occult Blood (NEGATIVE) Urine Nitrite (NEGATIVE) Urine Bilirubin (NEGATIVE) Urine Urobilinogen (0.2-1.0) mg/dL Ur Leukocyte Esterase (NEGATIVE) Urine RBC /HPF Urine WBC (0-5/HPF) /HPF Ur Epithelial Cells (NOT SEEN) /HPF Urine Bacteria (0-FEW/HPF) /HPF Urine Mucus (NOT SEEN) /LPF Blood Type Norberto Results Last 24 Hours: Microbiology 03/03/20 18:02 Influenza Type A Antigen Screen - Final Nasal, Unspecified NEGATIVE INFLUENZA A VIRUS AG REFERENCE RANGE: NEGATIVE Influenza Type B Antigen Screen - Final NEGATIVE INFLUENZA B VIRUS AG REFERENCE RANGE: NEGATIVE Med Orders - Current: Current Medications Acetaminophen (Tylenol) 650 mg PO Q4H PRN PRN Reason: Fever Greater Than 101 Last Admin: 03/03/20 22:32 Dose: 650 mg Documented by: Acetaminophen (Tylenol) 650 mg PO Q4H PRN PRN Reason: fever/pain Last Admin: 03/04/20 12:30 Dose: 650 mg Documented by: Dexamethasone (Decadron) 6 mg IVPUSH DAILY@2100 [facility] Stop: 03/12/20 21:01 Last Admin: 03/03/20 22:31 Dose: 6 mg Documented by: Dextrose/Water (Dextrose 50% In Water) 50 ml IV ASDIRECTED PRN PRN Reason: Hypoglycemia Docusate Sodium (Colace) 100 mg PO DAILY PRN PRN Reason: Constipation Last Admin: 03/03/20 22:33 Dose: 100 mg Documented by: Enoxaparin Sodium (Lovenox) 40 mg SUBCUT BID [facility] Glucagon (Glucagen) 1 mg IM ASDIRECTED PRN PRN Reason: Hypoglycemia Remdesivir 100 mg/ Sodium (Chloride) 230 mls @ 230 mls/hr IV DAILY@2100 [facility] Stop: 03/07/20 21:59 Insulin Human Lispro (Humalog) 0 unit SUBCUT WITHMEALSANDBED [facility]; Protocol Last Admin: 03/04/20 12:27 Dose: 2 units Documented by: Discontinued Medications Acetaminophen (Tylenol) 650 mg PO NOW ONE Stop: 03/03/20 18:02 Last Admin: 03/03/20 18:11 Dose: 650 mg Documented by: Enoxaparin Sodium (Lovenox) 40 mg SUBCUT DAILY [facility] Last Admin: 03/04/20 08:51 Dose: 40 mg Documented by: Guaifenesin/Codeine Phosphate (Robitussin Ac) 5 ml PO ONETIME ONE Stop: 03/03/20 18:02 Last Admin: 03/03/20 18:11 Dose: 5 ml Documented by: Sodium Chloride (Normal Saline) 1,000 mls @ 100 mls/hr IV CONTINUOUS ONE Stop: 03/04/20 04:00 Last Infusion: 03/04/20 04:27 Dose: Infused Documented by: Remdesivir 200 mg/ Sodium (Chloride) 210 mls @ 210 mls/hr IV ONETIME ONE Stop: 03/03/20 21:59 Last Infusion: 03/03/20 23:29 Dose: Infused Documented by: - Exam Quality Assessment: Supplemental Oxygen, DVT Prophylaxis General: Alert, Oriented, Cooperative, No Acute Distress HEENT: Pupils Equal, Pupils Reactive, EOMI, Mucous Membr. Moist/[place] Neck: Supple. No: No JVD, No Thyromegaly Lungs: Clear to Auscultation, Normal Respiratory Effort, Decreased Breath Sounds Cardiovascular: Regular Rate, Regular Rhythm, No Murmurs GI/Abdominal Exam: Normal Bowel Sounds, Soft, Non-Tender. No: Guarding, Rebound (Female) Exam: Deferred Back Exam: Normal Inspection, Full Range of Motion Extremities: Normal Inspection, No Pedal Edema Skin: Warm, Dry, Intact Neurological: No New Focal Deficit Psy/Mental Status: Alert, Normal Affect, Normal Mood Sepsis Event Note - Evaluation Sepsis Screening Result: No Definite Risk - Focused Exam Vital Signs: Vital Signs Temp Temp Pulse Resp BP Pulse Ox 03/04/20 12:00 36.9 C 71 20 117/69 93 L 03/04/20 08:48 37.4 C 74 20 125/71 92 L 03/04/20 04:57 37.4 C 84 20 113/78 94 L - Problem List & Annotations (1) Hypertension SNOMED Code(s): 07092154 Code(s): I10 - ESSENTIAL (PRIMARY) HYPERTENSION Status: Acute Current Visit: Yes Qualifiers: Hypertension type: essential hypertension Qualified Code(s): I10 - Essential (primary) hypertension (2) Pneumonia due to COVID-19 virus SNOMED Code(s): 205597557849925505 Code(s): U07.1 - COVID-19; J12.89 - OTHER VIRAL PNEUMONIA Status: Acute Current Visit: No - Problem List Review Problem List Initiated/Reviewed/Updated: Yes - My Orders Last 24 Hours: My Active Orders 03/03/20 17:09 ABO/RH TYPE [BBK] Routine FRESH FROZEN PLASMA [BBK] Routine 03/03/20 20:45 Positioning, Patient [RC] ASDIRECTED Verify Patient Consent Obtain [RC] ASDIRECTED Acetaminophen [TylenoL] 650 mg PO Q4H PRN Transfuse Fresh Frozen Plasma [COMM] Routine 03/03/20 20:54 Acetaminophen [TylenoL] 650 mg PO Q4H PRN 03/03/20 20:57 Patient Status [ADT] Routine Up With Assistance [RC] ASDIRECTED Vital Signs [RC] Q4H Docusate Sodium [Colace] 100 mg PO DAILY PRN Resuscitation Status Routine 03/03/20 20:58 Pulse Oximetry [RC] PRN 03/03/20 20:59 Oxygen Therapy [RC] CONTINUOUS 03/03/20 21:00 Dextrose 50% in Water 50 ml IV ASDIRECTED PRN Glucagon,Human Recombinant [GlucaGen] 1 mg IM ASDIRECTED PRN Insulin Lispro [HumaLOG] See Protocol SUBCUT WITHMEALSANDBED dexAMETHasone [Decadron] 6 mg IVPUSH DAILY@209903/03/20 21:02 Glucose [Blood Glucose Check, Bedside] [RC] QIDACANDBED 03/04/20 06:30 PROCALCITONIN [REF] Routine 03/04/20 Breakfast Consistent Carbohydrate Diet [DIET] 03/04/20 21:00 Enoxaparin [Lovenox] 40 mg SUBCUT BID Remdesivir (Eua) [Remdesivir (EUA)] 100 mg Sodium Chloride 0.9% [Normal Saline] 230 ml IV DAILY@209903/05/20 06:00 BASIC METABOLIC PANEL,BMP [CHEM] DAILY CBC WITH AUTO DIFF [HEME] DAILY D-DIMER QUANTITATIVE [COAG] DAILY 03/05/20 20:45 HEPATIC FUNCTION PANEL,HFP [CHEM] DAILY 03/06/20 06:00 BASIC METABOLIC PANEL,BMP [CHEM] DAILY CBC WITH AUTO DIFF [HEME] DAILY D-DIMER QUANTITATIVE [COAG] DAILY 03/06/20 20:45 HEPATIC FUNCTION PANEL,HFP [CHEM] DAILY 03/07/20 06:00 BASIC METABOLIC PANEL,BMP [CHEM] DAILY CBC WITH AUTO DIFF [HEME] DAILY D-DIMER QUANTITATIVE [COAG] DAILY 03/07/20 20:45 HEPATIC FUNCTION PANEL,HFP [CHEM] DAILY 03/08/20 06:00 BASIC METABOLIC PANEL,BMP [CHEM] DAILY CBC WITH AUTO DIFF [HEME] DAILY D-DIMER QUANTITATIVE [COAG] DAILY - Plan Plan:: This is a 49 Y/O F with past medical history of Hypertension, Diabetes II admitted with Hypoxia secondary to COVID-19 pneumonia Impreesion and Plan: 1. Covid 19 pneumonia Pt had Exposure on 02/25/20, symptoms started 02/27/20, got tested on Friday02/29/20 and results positive on ( 03/03/20) - Has GI and pulmonary symptoms - associated with hypoxemia 89% on RA - LFT, Renal fx. Is good - treat with , first dose of Remdesivir 03/03 - Will continue Dexamethasone , started on 03/03 - Will give Plasma, wrote on 03/03 for 2 units but not available today - Had no taste and no appetite on admission, no taste and appetite is improving -Will continue albuterol scheduled and as needed - evaluate for concurrent bacterial infections - Follow pro-calcitonin levels -In the meantime hold Abx - Ddimer is increasing DVT prophylaxis SQ Lovenox, changed to 2 times a day I spoke with patient and provided information about Remdesevir treatment as being under emergency use authorization (EUA) and not fully FDA approved or reviewed. I discussed potential side effects including liver abnormalities. Also discussed other potential treatment options that are currently not FDA approved to treat COVID-19. Patient gives permission for Remdesevir. I also discussed risks and benefits of Plasma Tx re: covid and agreed to accept the plasma 2. Diabetes II: pt had no appetite and will continue Insulin protocol and hold Metformin while on Remdesivir 3. Hypertension: BP acceptable home Medication on hold [ was on lisinopril] DVT prophylaxis: continue Lovenox Code status: Full Code
[2020-03-04] MEDS ORDERED: Water For Injection, Sterile 40 ML ONE (19:36)
[2020-03-04] MEDS: Dexamethasone 4 MG/ML SDV IVPUSH SCH (21:33)
[2020-03-04] MEDS: Codeine/guaiFENesin 10-100 MG/5 ML Syrup 5 ML Cup PO PRN (23:24)
[2020-03-05 06:37] LABS: ANION GAP 11.8 mEq/L (7-13); CHLORIDE,CL 103 mmol/L (98-107); SODIUM,NA 138 mmol/L (136-145)
[2020-03-05] MEDS: Insulin Lispro 100 Units/ML 3 ML Vial SUBCUT SCH ×4 (08:23→21:52)
[2020-03-05] MEDS: Enoxaparin 40 MG/0.4 ML Syringe SUBCUT SCH ×2 (10:02→20:13)
--- NOTE | 2020-03-05 13:02 | PCM.PN ---
- General Info Date of Service: 03/05/20 Admission Dx/Problem (Free Text): Admission Diagnosis/Problem Admission Diagnosis/Problem Pneumonia secondary to COVID-19 Subjective Update: Pt was seen in room doing well, got her taste back and this AM she is off oxygen, appetite is good, no nausea or Vomiting Functional Status: Reports: Pain Controlled, Tolerating Diet, Ambulating, Urinating - Review of Systems General: Reports: Weakness, Appetite (good). Denies: Fever, Chills HEENT: Denies: Post Nasal Drip, Sinus Congestion, Sore Throat, Visual Changes Pulmonary: Reports: Shortness of Breath, Cough (occasional). Denies: Sputum, Wheezing Cardiovascular: Denies: Chest Pain, Edema, Lightheadedness Gastrointestinal: Denies: Abdominal Pain, Diarrhea, Difficulty Swallowing, Nausea, Vomiting Genitourinary: Denies: Dysuria, Frequency, Burning, Flank Pain Musculoskeletal: Denies: Neck Pain, Leg Pain, Foot Pain, Joint Swelling Skin: Denies: Cyanosis, Jaundice, Bruising, Pruritis, Rash Neurological: Denies: Confusion, Numbness, Tremors, Weakness Psychiatric: Denies: Confusion, Anxiety, Agitation - Patient Data Vitals - Most Recent: Last Vital Signs Temp 36.1 C 03/05/20 07:00 Pulse 65 03/05/20 07:00 Resp 18 03/05/20 07:00 BP 105/60 03/05/20 07:00 Pulse Ox 91 L 03/05/20 07:00 Weight - Most Recent: 101.605 kg I&O - Last 24 Hours: Intake & Output 03/04/20 03/05/20 03/05/20 22:59 06:59 14:59 Intake Total 230 300 Balance 230 300 Lab Results Last 24 Hours: Laboratory Results - last 24 hr 03/04/20 03/04/20 03/05/20 Range/Units 16:08 21:09 05:40 WBC 2.7 L (5.0-10.0) 10^3/uL RBC 5.02 (4.2-5.4) 10^6/uL Hgb 14.1 (12.0-16.0) g/dL Hct 42.1 (37.0-47.0) % MCV 83.9 (80-100) fL MCH 28.1 (27.0-34.0) pg MCHC 33.5 (33.0-35.0) g/dL Plt Count 275 (150-450) 10^3/uL Neut % (Auto) 60.7 (42.2-75.2) % Lymph % (Auto) 31.9 (20.5-50.1) % [place] % (Auto) 7.4 (2-8) % Eos % (Auto) 0.0 L (1.0-3.0) % Baso % (Auto) 0.0 (0.0-1.0) % D-Dimer, Quantitative (0-400) ng/mL Sodium (136-145) mmol/L Potassium (3.5-5.1) mmol/L Chloride (98-107) mmol/L Carbon Dioxide (21-32) mmol/L Anion Gap (7-13) mEq/L BUN (7-18) mg/dL Creatinine (0.55-1.02) mg/dL Est Cr Clr Drug Dosing mL/min Estimated GFR (MDRD) Glucose (74-99) mg/dL POC Glucose 172 H 230 H (70-105) mg/dl Calcium (8.5-10.1) mg/dL Total Bilirubin (0.2-1.0) mg/dL Direct Bilirubin (0.0-0.2) mg/dL Indirect Bilirubin AST (15-37) U/L ALT (14-59) U/L Alkaline Phosphatase (46-116) U/L Total Protein (6.4-8.2) g/dL Albumin (3.4-5.0) g/dL Globulin Albumin/Globulin Ratio 03/05/20 03/05/20 03/05/20 Range/Units 05:40 05:40 05:40 WBC (5.0-10.0) 10^3/uL RBC (4.2-5.4) 10^6/uL Hgb (12.0-16.0) g/dL Hct (37.0-47.0) % MCV (80-100) fL MCH (27.0-34.0) pg MCHC (33.0-35.0) g/dL Plt Count (150-450) 10^3/uL Neut % (Auto) (42.2-75.2) % Lymph % (Auto) (20.5-50.1) % [place] % (Auto) (2-8) % Eos % (Auto) (1.0-3.0) % Baso % (Auto) (0.0-1.0) % D-Dimer, Quantitative 207 (0-400) ng/mL Sodium 138 (136-145) mmol/L Potassium 3.8 (3.5-5.1) mmol/L Chloride 103 (98-107) mmol/L Carbon Dioxide 27 (21-32) mmol/L Anion Gap 11.8 (7-13) mEq/L BUN 6 L (7-18) mg/dL Creatinine 0.60 (0.55-1.02) mg/dL Est Cr Clr Drug Dosing 99.82 mL/min Estimated GFR (MDRD) > 60 Glucose 254 H (74-99) mg/dL POC Glucose (70-105) mg/dl Calcium 8.4 L (8.5-10.1) mg/dL Total Bilirubin 0.2 (0.2-1.0) mg/dL Direct Bilirubin 0.1 (0.0-0.2) mg/dL Indirect Bilirubin 0.1 AST 29 (15-37) U/L ALT 28 (14-59) U/L Alkaline Phosphatase 97 (46-116) U/L Total Protein 7.2 (6.4-8.2) g/dL Albumin 2.4 L (3.4-5.0) g/dL Globulin 4.8 Albumin/Globulin Ratio 0.50 11/15/20 Range/Units 08:17 WBC (5.0-10.0) 10^3/uL RBC (4.2-5.4) 10^6/uL Hgb (12.0-16.0) g/dL Hct (37.0-47.0) % MCV (80-100) fL MCH (27.0-34.0) pg MCHC (33.0-35.0) g/dL Plt Count (150-450) 10^3/uL Neut % (Auto) (42.2-75.2) % Lymph % (Auto) (20.5-50.1) % [place] % (Auto) (2-8) % Eos % (Auto) (1.0-3.0) % Baso % (Auto) (0.0-1.0) % D-Dimer, Quantitative (0-400) ng/mL Sodium (136-145) mmol/L Potassium (3.5-5.1) mmol/L Chloride (98-107) mmol/L Carbon Dioxide (21-32) mmol/L Anion Gap (7-13) mEq/L BUN (7-18) mg/dL Creatinine (0.55-1.02) mg/dL Est Cr Clr Drug Dosing mL/min Estimated GFR (MDRD) Glucose (74-99) mg/dL POC Glucose 204 H (70-105) mg/dl Calcium (8.5-10.1) mg/dL Total Bilirubin (0.2-1.0) mg/dL Direct Bilirubin (0.0-0.2) mg/dL Indirect Bilirubin AST (15-37) U/L ALT (14-59) U/L Alkaline Phosphatase (46-116) U/L Total Protein (6.4-8.2) g/dL Albumin (3.4-5.0) g/dL Globulin Albumin/Globulin Ratio Med Orders - Current: Current Medications Acetaminophen (Tylenol) 650 mg PO Q4H PRN PRN Reason: fever/pain Last Admin: 03/04/20 21:43 Dose: 650 mg Documented by: Dexamethasone (Decadron) 6 mg IVPUSH DAILY@2100 [facility] Stop: 03/12/20 21:01 Last Admin: 03/04/20 21:33 Dose: 6 mg Documented by: Dextrose/Water (Dextrose 50% In Water) 50 ml IV ASDIRECTED PRN PRN Reason: Hypoglycemia Docusate Sodium (Colace) 100 mg PO DAILY PRN PRN Reason: Constipation Last Admin: 03/03/20 22:33 Dose: 100 mg Documented by: Enoxaparin Sodium (Lovenox) 40 mg SUBCUT BID [facility] Last Admin: 03/05/20 10:02 Dose: 40 mg Documented by: Glucagon (Glucagen) 1 mg IM ASDIRECTED PRN PRN Reason: Hypoglycemia Guaifenesin/Codeine Phosphate (Robitussin Ac) 5 ml PO Q4H PRN PRN Reason: cough Last Admin: 03/04/20 23:24 Dose: 5 ml Documented by: Remdesivir 100 mg/ Sodium (Chloride) 230 mls @ 230 mls/hr IV DAILY@2100 [facility] Stop: 11/17/20 21:59 Last Infusion: 03/04/20 23:21 Dose: Infused Documented by: Insulin Human Lispro (Humalog) 0 unit SUBCUT WITHMEALSANDBED [facility]; Protocol Last Admin: 03/05/20 12:13 Dose: 4 units Documented by: Discontinued Medications Acetaminophen (Tylenol) 650 mg PO NOW ONE Stop: 03/03/20 18:02 Last Admin: 03/03/20 18:11 Dose: 650 mg Documented by: Acetaminophen (Tylenol) 650 mg PO Q4H PRN PRN Reason: Fever Greater Than 101 Last Admin: 03/03/20 22:32 Dose: 650 mg Documented by: Enoxaparin Sodium (Lovenox) 40 mg SUBCUT DAILY [facility] Last Admin: 03/04/20 08:51 Dose: 40 mg Documented by: Guaifenesin/Codeine Phosphate (Robitussin Ac) 5 ml PO ONETIME ONE Stop: 03/03/20 18:02 Last Admin: 03/03/20 18:11 Dose: 5 ml Documented by: Sodium Chloride (Normal Saline) 1,000 mls @ 100 mls/hr IV CONTINUOUS ONE Stop: 03/04/20 04:00 Last Infusion: 03/04/20 04:27 Dose: Infused Documented by: Remdesivir 200 mg/ Sodium (Chloride) 210 mls @ 210 mls/hr IV ONETIME ONE Stop: 03/03/20 21:59 Last Infusion: 03/03/20 23:29 Dose: Infused Documented by: Sterile Water (Sterile Water For Injection) Confirm Administered Dose 40 mls @ as directed .ROUTE .STK-MED ONE Stop: 03/04/20 19:37 Last Admin: 03/04/20 22:03 Dose: Not Given Documented by: - Exam Quality Assessment: Supplemental Oxygen (weaned off abou 12 ( noon)), DVT Prophylaxis General: Alert, Oriented, Cooperative, No Acute Distress HEENT: Pupils Equal, Pupils Reactive, EOMI, Mucous Membr. Moist/[place] Neck: Supple, No JVD, No Thyromegaly Lungs: Clear to Auscultation, Normal Respiratory Effort, Crackles (at base) Cardiovascular: Regular Rate, Regular Rhythm, No Murmurs GI/Abdominal Exam: Normal Bowel Sounds, Soft, Non-Tender. No: Guarding, Rigid, Rebound (Female) Exam: Deferred Back Exam: Normal Inspection, Full Range of Motion Extremities: Normal Inspection, No Pedal Edema Skin: Warm, Dry, Intact Neurological: No New Focal Deficit Psy/Mental Status: Alert, Normal Affect, Normal Mood Sepsis Event Note - Evaluation Sepsis Screening Result: No Definite Risk - Focused Exam Vital Signs: Vital Signs Temp Pulse Resp BP Pulse Ox 03/05/20 07:00 36.1 C 65 18 105/60 91 L - Problem List & Annotations (1) Hypertension SNOMED Code(s): 50562741 Code(s): I10 - ESSENTIAL (PRIMARY) HYPERTENSION Status: Acute Current Visit: Yes Qualifiers: Hypertension type: essential hypertension Qualified Code(s): I10 - Essential (primary) hypertension (2) Pneumonia due to COVID-19 virus SNOMED Code(s): 264072116723221205 Code(s): U07.1 - COVID-19; J12.89 - OTHER VIRAL PNEUMONIA Status: Acute Current Visit: No - Problem List Review Problem List Initiated/Reviewed/Updated: Yes - My Orders Last 24 Hours: My Active Orders 03/04/20 21:00 Enoxaparin [Lovenox] 40 mg SUBCUT BID Remdesivir (Eua) [Remdesivir (EUA)] 100 mg Sodium Chloride 0.9% [Normal Saline] 230 ml IV DAILY@2100 03/04/20 22:08 Codeine/guaiFENesin [Robitussin AC] 5 ml PO Q4H PRN 03/06/20 06:00 BASIC METABOLIC PANEL,BMP [CHEM] DAILY CBC WITH AUTO DIFF [HEME] DAILY D-DIMER QUANTITATIVE [COAG] DAILY 03/06/20 20:45 HEPATIC FUNCTION PANEL,HFP [CHEM] DAILY 03/07/20 06:00 BASIC METABOLIC PANEL,BMP [CHEM] DAILY CBC WITH AUTO DIFF [HEME] DAILY D-DIMER QUANTITATIVE [COAG] DAILY 03/07/20 20:45 HEPATIC FUNCTION PANEL,HFP [CHEM] DAILY 03/08/20 06:00 BASIC METABOLIC PANEL,BMP [CHEM] DAILY CBC WITH AUTO DIFF [HEME] DAILY D-DIMER QUANTITATIVE [COAG] DAILY - Plan Plan:: This is a 49 Y/O F with past medical history of Hypertension, Diabetes II admitted with Hypoxia secondary to COVID-19 pneumonia ( Exposure 02/24, symptom started 02/26, teted for COVID 02/28 and result turn positive on 03/03, inial symptom loss of taste and loss of smell Impresion and Plan: 1. Covid 19 pneumonia Pt had Exposure on 02/25/20, symptoms started 02/27/20, got tested on Friday02/29/20 and results positive on ( 03/03/20) - Has GI and pulmonary symptoms - associated with hypoxemia 89% on RA - LFT, Renal fx. Is good - treat with Remdesivir , first dose on 03/03 - Will continue Dexamethasone , started on 03/03 - Will give Plasma, wrote on 03/03 for 2 units but not available today, may be avaailable on Friday but will not need any more she is improving - Had no taste and no appetite on admission, now taste and appetite is improving -Will continue albuterol scheduled and as needed - evaluate for concurrent bacterial infections - Follow pro-calcitonin levels -In the meantime hold Abx - Ddimer was increasing DVT prophylaxis SQ Lovenox, to 2 times a day I spoke with patient and provided information about Remdesevir treatment as being under emergency use authorization (EUA) and not fully FDA approved or reviewed. I discussed potential side effects including liver abnormalities. Also discussed other potential treatment options that are currently not FDA approved to treat COVID-19. Patient gives permission for Remdesevir. I also discussed risks and benefits of Plasma Tx re: covid and agreed to accept the plasma 2. Diabetes II: pt had no appetite and will continue Insulin protocol and hold Metformin while on Remdesivir 3. Hypertension: BP acceptable home Medication on hold [ was on lisinopril] DVT prophylaxis: continue Lovenox Code status: Full Code
[2020-03-05] MEDS: Acetaminophen 325 MG Tab PO PRN ×2 (17:42→23:02)
[2020-03-05] MEDS: Dexamethasone 4 MG/ML SDV IVPUSH SCH (20:14)
[2020-03-05] MEDS: Codeine/guaiFENesin 10-100 MG/5 ML Syrup 5 ML Cup PO PRN (21:52)
[2020-03-06 06:50] LABS: ANION GAP 14.5 mEq/L (7-13); CHLORIDE,CL 100 mmol/L (98-107); SODIUM,NA 137 mmol/L (136-145)
[2020-03-06] MEDS: Insulin Lispro 100 Units/ML 3 ML Vial SUBCUT SCH ×2 (08:22→12:19)
[2020-03-06] MEDS: Enoxaparin 40 MG/0.4 ML Syringe SUBCUT SCH (08:23)
[2020-03-06] MEDS: Docusate Sodium 100 MG Cap PO PRN (09:51)
[2020-03-06 12:19] VITALS: BP 139/80; PULSE 66
[2020-03-06] MEDS ORDERED: Dexamethasone 4 MG/ML SDV IVPUSH SCH (13:00)
--- NOTE | 2020-03-06 13:04 | PCM.DCSUM1 ---
Discharge Summary - Hospital Course Free Text/Narrative:: Patient is a 48-year-old female with a medical history of diabetes type 2, dyslipidemia, hypertension, fatty liver disease, GERD, obesity who presented with shortness of breath and hypoxia requiring oxygen supplementation. Chest x- ray showed diffuse patchy opacities bilaterally and she tested positive for COVID-19. Patient received treatment with remdesivir, convalescent plasma and Decadron with improvement in her respiratory status. At the point of discharge she was requiring about 2 L of oxygen at rest and up to 4 L with activity. She was discharged on home oxygen. Diagnosis: Stroke: No - Discharge Data Discharge Date: 03/06/20 Discharge Disposition: Home, Self-Care 01 Condition: Good - Referral to Home Health Primary Care Physician: Farshad Truong NP - Discharge Plan *PRESCRIPTION DRUG MONITORING PROGRAM REVIEWED*: Not Applicable *COPY OF PRESCRIPTION DRUG MONITORING REPORT IN PATIENT ROGELIO: Not Applicable Prescriptions/Med Rec: dexAMETHasone [Dexamethasone] 6 mg PO Q6H #5 tab Aspirin [Ecotrin EC] 325 mg PO DAILY #30 tab.ec Home Medications: Home Meds metFORMIN [Glucophage XR] 1,000 mg PO BID 03/25/13 [History] Rosuvastatin [Crestor] 10 mg PO BEDTIME 05/26/17 [History] Insulin Glarg,Human.Rec.Analog [Lantus] 30 units SQ DAILY 03/03/20 [History] lisinopriL [Lisinopril] 10 units PO DAILY 03/03/20 [History] Aspirin [Ecotrin EC] 325 mg PO DAILY #30 tab.ec 03/06/20 [Rx] dexAMETHasone [Dexamethasone] 6 mg PO Q6H #5 tab 03/06/20 [Rx] Oxygen Therapy Mode: Nasal Cannula Maintain SpO2% greater than: 90 Forms: ED Department Discharge Referrals: [facility] [Ordering Only Provider] - - Discharge Summary/Plan Comment DC Time >30 min.: Yes - General Info Date of Service: 03/06/20 Admission Dx/Problem (Free Text: Admission Diagnosis/Problem Admission Diagnosis/Problem Pneumonia secondary to COVID-19 Subjective Update: Patient seen and examined this morning. She is doing better. She still requiring 2L oxygen. Denies chest pain. Afebrile overnight. Functional Status: Reports: Pain Controlled - Review of Systems General: Reports: No Symptoms HEENT: Reports: No Symptoms Pulmonary: Reports: Shortness of Breath Cardiovascular: Reports: No Symptoms Gastrointestinal: Reports: No Symptoms Genitourinary: Reports: No Symptoms Musculoskeletal: Reports: No Symptoms Skin: Reports: No Symptoms Neurological: Reports: No Symptoms Psychiatric: Reports: No Symptoms - Patient Data Vitals - Most Recent: Last Vital Signs Temp 97.1 F 03/06/20 11:00 Pulse 66 03/06/20 11:00 Resp 18 03/06/20 11:00 BP 139/80 03/06/20 11:00 Pulse Ox 90 L 03/06/20 12:23 Weight - Most Recent: 224 lb I&O - Last 24 hours: Intake & Output 03/05/20 03/06/20 03/06/20 22:59 06:59 14:59 Intake Total 240 260 Balance 240 260 Lab Results - Last 24 hrs: Laboratory Results - last 24 hr 03/05/20 03/05/20 03/05/20 Range/Units 12:11 17:11 21:50 WBC (5.0-10.0) 10^3/uL RBC (4.2-5.4) 10^6/uL Hgb (12.0-16.0) g/dL Hct (37.0-47.0) % MCV (80-100) fL MCH (27.0-34.0) pg MCHC (33.0-35.0) g/dL Plt Count (150-450) 10^3/uL Neut % (Auto) (42.2-75.2) % Lymph % (Auto) (20.5-50.1) % [place] % (Auto) (2-8) % Eos % (Auto) (1.0-3.0) % Baso % (Auto) (0.0-1.0) % Add Manual Diff Neutrophils % (Manual) (42-75) % Lymphocytes % (Manual) (20-50) % Monocytes % (Manual) (2-8) % D-Dimer, Quantitative (0-400) ng/mL Sodium (136-145) mmol/L Potassium (3.5-5.1) mmol/L Chloride (98-107) mmol/L Carbon Dioxide (21-32) mmol/L Anion Gap (7-13) mEq/L BUN (7-18) mg/dL Creatinine (0.55-1.02) mg/dL Est Cr Clr Drug Dosing mL/min Estimated GFR (MDRD) Glucose (74-99) mg/dL POC Glucose 218 H 188 H 169 H (70-105) mg/dl Calcium (8.5-10.1) mg/dL Total Bilirubin (0.2-1.0) mg/dL Direct Bilirubin (0.0-0.2) mg/dL Indirect Bilirubin AST (15-37) U/L ALT (14-59) U/L Alkaline Phosphatase (46-116) U/L Total Protein (6.4-8.2) g/dL Albumin (3.4-5.0) g/dL Globulin Albumin/Globulin Ratio 03/06/20 03/06/20 03/06/20 Range/Units 05:30 05:30 05:30 WBC 2.8 L (5.0-10.0) 10^3/uL RBC 4.87 (4.2-5.4) 10^6/uL Hgb 13.5 (12.0-16.0) g/dL Hct 40.7 (37.0-47.0) % MCV 83.6 (80-100) fL MCH 27.7 (27.0-34.0) pg MCHC 33.2 (33.0-35.0) g/dL Plt Count 315 (150-450) 10^3/uL Neut % (Auto) 63.2 (42.2-75.2) % Lymph % (Auto) 29.0 (20.5-50.1) % [place] % (Auto) 7.8 (2-8) % Eos % (Auto) 0.0 L (1.0-3.0) % Baso % (Auto) 0.0 (0.0-1.0) % Add Manual Diff Yes Neutrophils % (Manual) 71 (42-75) % Lymphocytes % (Manual) 23 (20-50) % Monocytes % (Manual) 6 (2-8) % D-Dimer, Quantitative 108 (0-400) ng/mL Sodium 137 (136-145) mmol/L Potassium 3.5 (3.5-5.1) mmol/L Chloride 100 (98-107) mmol/L Carbon Dioxide 26 (21-32) mmol/L Anion Gap 14.5 H (7-13) mEq/L BUN 7 (7-18) mg/dL Creatinine 0.52 L (0.55-1.02) mg/dL Est Cr Clr Drug Dosing 115.17 mL/min Estimated GFR (MDRD) > 60 Glucose 264 H (74-99) mg/dL POC Glucose (70-105) mg/dl Calcium 8.2 L (8.5-10.1) mg/dL Total Bilirubin (0.2-1.0) mg/dL Direct Bilirubin (0.0-0.2) mg/dL Indirect Bilirubin AST (15-37) U/L ALT (14-59) U/L Alkaline Phosphatase (46-116) U/L Total Protein (6.4-8.2) g/dL Albumin (3.4-5.0) g/dL Globulin Albumin/Globulin Ratio 03/06/20 03/06/20 03/06/20 Range/Units 05:30 08:16 12:16 WBC (5.0-10.0) 10^3/uL RBC (4.2-5.4) 10^6/uL Hgb (12.0-16.0) g/dL Hct (37.0-47.0) % MCV (80-100) fL MCH (27.0-34.0) pg MCHC (33.0-35.0) g/dL Plt Count (150-450) 10^3/uL Neut % (Auto) (42.2-75.2) % Lymph % (Auto) (20.5-50.1) % [place] % (Auto) (2-8) % Eos % (Auto) (1.0-3.0) % Baso % (Auto) (0.0-1.0) % Add Manual Diff Neutrophils % (Manual) (42-75) % Lymphocytes % (Manual) (20-50) % Monocytes % (Manual) (2-8) % D-Dimer, Quantitative (0-400) ng/mL Sodium (136-145) mmol/L Potassium (3.5-5.1) mmol/L Chloride (98-107) mmol/L Carbon Dioxide (21-32) mmol/L Anion Gap (7-13) mEq/L BUN (7-18) mg/dL Creatinine (0.55-1.02) mg/dL Est Cr Clr Drug Dosing mL/min Estimated GFR (MDRD) Glucose (74-99) mg/dL POC Glucose 201 H 213 H (70-105) mg/dl Calcium (8.5-10.1) mg/dL Total Bilirubin 0.3 (0.2-1.0) mg/dL Direct Bilirubin 0.1 (0.0-0.2) mg/dL Indirect Bilirubin 0.2 AST 33 (15-37) U/L ALT 33 (14-59) U/L Alkaline Phosphatase 96 (46-116) U/L Total Protein 7.1 (6.4-8.2) g/dL Albumin 2.5 L (3.4-5.0) g/dL Globulin 4.6 Albumin/Globulin Ratio 0.54 Med Orders - Current: Current Medications Acetaminophen (Tylenol) 650 mg PO Q4H PRN PRN Reason: fever/pain Last Admin: 03/05/20 23:02 Dose: 650 mg Documented by: Dexamethasone (Decadron) 6 mg IVPUSH DAILY@2099 [facility] Stop: 03/12/20 21:01 Last Admin: 03/05/20 20:14 Dose: 6 mg Documented by: Dextrose/Water (Dextrose 50% In Water) 50 ml IV ASDIRECTED PRN PRN Reason: Hypoglycemia Docusate Sodium (Colace) 100 mg PO DAILY PRN PRN Reason: Constipation Last Admin: 03/06/20 09:51 Dose: 100 mg Documented by: Enoxaparin Sodium (Lovenox) 40 mg SUBCUT BID [facility] Last Admin: 03/06/20 08:23 Dose: 40 mg Documented by: Glucagon (Glucagen) 1 mg IM ASDIRECTED PRN PRN Reason: Hypoglycemia Guaifenesin/Codeine Phosphate (Robitussin Ac) 5 ml PO Q4H PRN PRN Reason: cough Last Admin: 03/05/20 21:52 Dose: 5 ml Documented by: Remdesivir 100 mg/ Sodium (Chloride) 230 mls @ 230 mls/hr IV DAILY@2100 [facility] Stop: 03/07/20 21:59 Last Infusion: 03/05/20 23:00 Dose: Infused Documented by: Insulin Human Lispro (Humalog) 0 unit SUBCUT WITHMEALSANDBED [facility]; Protocol Last Admin: 03/06/20 12:19 Dose: 4 units Documented by: Discontinued Medications Acetaminophen (Tylenol) 650 mg PO NOW ONE Stop: 03/03/20 18:02 Last Admin: 03/03/20 18:11 Dose: 650 mg Documented by: Acetaminophen (Tylenol) 650 mg PO Q4H PRN PRN Reason: Fever Greater Than 101 Last Admin: 03/03/20 22:32 Dose: 650 mg Documented by: Enoxaparin Sodium (Lovenox) 40 mg SUBCUT DAILY [facility] Last Admin: 03/04/20 08:51 Dose: 40 mg Documented by: Guaifenesin/Codeine Phosphate (Robitussin Ac) 5 ml PO ONETIME ONE Stop: 03/03/20 18:02 Last Admin: 03/03/20 18:11 Dose: 5 ml Documented by: Sodium Chloride (Normal Saline) 1,000 mls @ 100 mls/hr IV CONTINUOUS ONE Stop: 03/04/20 04:00 Last Infusion: 03/04/20 04:27 Dose: Infused Documented by: Remdesivir 200 mg/ Sodium (Chloride) 210 mls @ 210 mls/hr IV ONETIME ONE Stop: 03/03/20 21:59 Last Infusion: 03/03/20 23:29 Dose: Infused Documented by: Sterile Water (Sterile Water For Injection) Confirm Administered Dose 40 mls @ as directed .ROUTE .STK-MED ONE Stop: 03/04/20 19:37 Last Admin: 03/04/20 22:03 Dose: Not Given Documented by: - Exam Quality Assessment: Reports: Supplemental Oxygen General: Reports: Alert, Oriented HEENT: Reports: Pupils Equal, Pupils Reactive, EOMI, Mucous Membr. Moist/[place] Neck: Reports: Supple Lungs: Reports: Crackles Cardiovascular: Reports: Regular Rate, Regular Rhythm GI/Abdominal Exam: Normal Bowel Sounds, Soft, Non-Tender, No Organomegaly, No Distention, No Abnormal Bruit, No Mass, Pelvis Stable Back Exam: Reports: Normal Inspection, Full Range of Motion Extremities: Normal Inspection, Normal Range of Motion, Non-Tender, No Pedal Edema, Normal Capillary Refill Skin: Reports: Warm, Dry, Intact Neurological: Reports: No New Focal Deficit Psy/Mental Status: Reports: Alert, Normal Affect, Normal Mood
== END 2020-03-06 15:50 | disposition home or self-care (01) | DRG 177 ==
LOC: DL.ED 14:36 → DL.MS 18:09
PROVIDERS: ADMIT Internal Medicine; ATTEND Internal Medicine
PROC: XW033E5 Introduction of Remdesivir Anti-infective into Peripheral Vein, Percutaneous Approach, New Technology Group 5 (ICD-10-PCS; principal; 2020-03-03)
PROC: 8E0ZXY6 Isolation (ICD-10-PCS; 2020-03-03)
PROC: XW13325 Transfusion of Convalescent Plasma (Nonautologous) into Peripheral Vein, Percutaneous Approach, New Technology Group 5 (ICD-10-PCS; 2020-03-03)
DX: U07.1 COVID-19 (principal); J12.89 Other viral pneumonia; E78.5 Hyperlipidemia, unspecified; I10 Essential (primary) hypertension; K21.9 Gastro-esophageal reflux disease without esophagitis; E66.9 Obesity, unspecified; K76.0 Fatty (change of) liver, not elsewhere classified; Z79.4 Long term (current) use of insulin; Z79.899 Other long term (current) drug therapy; Z99.81 Dependence on supplemental oxygen; H54.7 Unspecified visual loss; E78.00 Pure hypercholesterolemia, unspecified; F41.9 Anxiety disorder, unspecified; D64.9 Anemia, unspecified; Z96.698 Presence of other orthopedic joint implants; Z87.891 Personal history of nicotine dependence; E11.9 Type 2 diabetes mellitus without complications; Z68.37 Body mass index [BMI] 37.0-37.9, adult
CPT/HCPCS: 36415; 71045; 80048; 80053; 80076; 81001; 82248; 82962; 83615; 84145; 85025; 85379; 86140; 86900; 86901; 87804; A9270-GY; J1100; J1650; J1815-GY; J7030; J7050

== ENCOUNTER 2022-08-30 05:18 | Day surgery (SDC) | payer BC, OTHER ==
[~2022-08-30 05:18] MED LIST changes: -Dextrose 5%-0.45% NaCl 1,000 ML IV SCH; +Sodium Chloride 0.9% 10 ML Syringe FLUSH SCH
[2022-08-30] MEDS ORDERED: Midazolam 1 MG/ML 2 ML SDV IV ONE ×3 (05:19→06:43)
[2022-08-30] MEDS ORDERED: fentaNYL 100 MCG/2 ML SDV IV ONE ×3 (05:19→06:41)
[2022-08-30] MEDS ORDERED: Dextrose 5%-0.45% NaCl 1,000 ML IV SCH (06:00)
[2022-08-30] MEDS ORDERED: Midazolam 1 MG/ML 2 ML SDV ONE (06:32)
[2022-08-30] MEDS ORDERED: fentaNYL 100 MCG/2 ML SDV ONE (06:32)
[2022-08-30 09:54] VITALS: BP 126/68; PULSE 70
== END 2022-08-30 08:57 | disposition home or self-care (01) ==
LOC: DL.ENDO 05:18
PROVIDERS: ATTEND Internal Medicine Gastroenterology
DX: K44.9 Diaphragmatic hernia without obstruction or gangrene (principal); B96.81 Helicobacter pylori [H. pylori] as the cause of diseases classified elsewhere; K21.9 Gastro-esophageal reflux disease without esophagitis; E11.9 Type 2 diabetes mellitus without complications; F41.1 Generalized anxiety disorder; E55.9 Vitamin D deficiency, unspecified; E78.00 Pure hypercholesterolemia, unspecified; M54.50 Low back pain, unspecified; E66.09 Other obesity due to excess calories; Z88.8 Allergy status to other drugs, medicaments and biological substances; Z68.41 Body mass index [BMI] 40.0-44.9, adult; Z79.899 Other long term (current) drug therapy
CPT/HCPCS: 43239; 87077; J2250; J3010; J7042

== ENCOUNTER 2023-08-20 04:17 | Emergency (ER) | payer BC, MEDICAID ==
[2023-08-20] MEDS: GI Cocktail Oral Solution 30 ML PO ONE (04:43)
[2023-08-20 04:47] LABS: BASOPHILS PERCENT AUTO 0.2 % (0.0-1.0); EOSINOPHILS PERCENT AUTO 2.5 % (1.0-3.0); HEMATOCRIT 46.7 % (37.0-47.0); HEMOGLOBIN 15.2 g/dL (12.0-16.0); LYMPHOCYTES PERCENT AUTO 23.6 % (20.5-50.1); MEAN CORPUSCULAR HGB CONC 32.5 g/dL (33.0-35.0); NEUTROPHILS PERCENT AUTO 66.7 % (42.2-75.2); PLATELET COUNT,PLT 260 10^3/uL (150-450); RED BLOOD CELL COUNT 5.43 10^6/uL (4.2-5.4); WHITE BLOOD CELL COUNT,WBC 11.7 10^3/uL (5.0-10.0)
[2023-08-20 05:05] LABS: INR 0.9 (0.9-1.2); PROTHROMBIN TIME 9.8 SEC (9.0-12.0); PTT,PARTIAL THROMBOPLSTIN TIME 25.4 SEC (22.0-34.0)
[2023-08-20 05:09] LABS: A/G RATIO 0.7; ALANINE AMINOTRANSFERASE,ALT 34 U/L (14-59); ALBUMIN 3.5 g/dL (3.4-5.0); ALKALINE PHOSPHATASE 109 U/L (46-116); AMYLASE 46 U/L (25-115); ANION GAP 13.1 mEq/L (7-13); ASPARTATE AMNIOTRANSFERASE,AST 23 U/L (15-37); BILIRUBIN TOTAL 0.5 mg/dL (0.2-1.0); BLOOD UREA NITROGEN,BUN 13 mg/dL (7-18); BUN/CREATININE RATIO 23.6 (No establ ref range); CALCIUM 8.7 mg/dL (8.5-10.1); CARBON DIOXIDE,CO2 27 mmol/L (21-32); CHLORIDE,CL 101 mmol/L (98-107); CREATININE 0.55 mg/dL (0.55-1.02); GLUCOSE RANDOM 156 mg/dL (70-99); LIPASE 45 U/L (16-77); POTASSIUM,K 4.1 mmol/L (3.5-5.1); PROTEIN TOTAL,TP 8.3 g/dL (6.4-8.2); SODIUM,NA 137 mmol/L (136-145)
[2023-08-20 05:10] LABS: ESTIMATED GFR 108 mL/min (>=60)
[2023-08-20] MEDS: HYDROmorphone 1 MG/ML Syringe IVPUSH ONE (05:10)
[2023-08-20] MEDS: Sodium Chloride 0.9% 10 ML Syringe FLUSH PRN (05:11)
[2023-08-20 05:13] LABS: LACTIC ACID 1.2 mmol/L (0.4-2.0)
[2023-08-20] MEDS: Iopamidol 612 MG/ML 100 ML Bottle IVPUSH ONE (06:09)
[2023-08-20] MEDS: Metoclopramide 10 MG/2 ML SDV IVPUSH ONE (06:38)
[2023-08-20] MEDS: Ketorolac 30 MG/ML SDV IVPUSH ONE (06:39)
[2023-08-20 07:12] VITALS: BP 102/69; PULSE 78
== END 2023-08-20 07:08 | disposition home or self-care (01) ==
LOC: DL.ED 04:17
DX: K82.8 Other specified diseases of gallbladder (principal); J98.11 Atelectasis; I10 Essential (primary) hypertension; E78.00 Pure hypercholesterolemia, unspecified; K21.9 Gastro-esophageal reflux disease without esophagitis; E11.9 Type 2 diabetes mellitus without complications; Z79.4 Long term (current) use of insulin; Z79.899 Other long term (current) drug therapy; Z88.8 Allergy status to other drugs, medicaments and biological substances; Z79.82 Long term (current) use of aspirin; Z86.16 Personal history of COVID-19
CPT/HCPCS: 36415; 71045; 74177; 80053; 82150; 83605; 83690; 84703; 85025; 85610; 85730; 86140; 96374; 96375; 99284; 99284-25; A9270-GY; J1170; J1885; J2765; J3490; Q9967